=== PATIENT | male | born 1960 | race Caucasian/White ===

== ENCOUNTER → 2017-11-19 09:44 | Outpatient (CLI) | payer MEDICARE, SELFPAY ==
--- NOTE | 2017-11-19 09:44 | DT_ITS ---
This patient was seen during an EMR downtime November 12, 2017 - November 19, 2017. This patient may have a combination of paper and electronic documentation or all paper documentation. All documentation is viewable within the e-chart portion of [employer] [facility] for each patient visit.
[2017-11-19 10:54] LABS: Amphetamine Urine VISTA NEGATIVE (<1000 ng/mL); Barbiturate Urine VISTA NEGATIVE (< 200 ng/mL); Benzodiazepine Urine VISTA NEGATIVE (< 200 ng/mL); Cocaine Urine VISTA NEGATIVE (< 300 ng/mL); Ecstacy Urine VISTA NEGATIVE (< 500 ng/mL); Methadone Urine VISTA NEGATIVE (< 300 ng/mL); PCP Urine VISTA NEGATIVE (< 25 ng/mL); THC Urine VISTA NEGATIVE (< 50 ng/mL); Vista UDS pH Range 6
== END ==
PROVIDERS: Visit Provider Anesthesiology Pain Medicine
DX: F11.20 Opioid dependence, uncomplicated (principal)
CPT/HCPCS: 80307

== ENCOUNTER → 2018-07-03 10:43 | Outpatient (CLI) | payer MEDICARE, SELFPAY ==
[2018-07-03 11:35] LABS: Amphetamine Urine VISTA NEGATIVE (<1000 ng/mL); Barbiturate Urine VISTA NEGATIVE (< 200 ng/mL); Benzodiazepine Urine VISTA NEGATIVE (< 200 ng/mL); Cocaine Urine VISTA NEGATIVE (< 300 ng/mL); Ecstacy Urine VISTA NEGATIVE (< 500 ng/mL); Methadone Urine VISTA NEGATIVE (< 300 ng/mL); PCP Urine VISTA NEGATIVE (< 25 ng/mL); THC Urine VISTA NEGATIVE (< 50 ng/mL); Vista UDS pH Range 6
--- OUTSIDE RECORDS SUMMARY | 2018-09-04 08:28 | XMS RPT_ITS ---
:1960 Author Organization OHIP Care Team Providers Name Role Phone GIOVANA ARDON MD Attending Unavailable NEIL OSEI DR Admitting Unavailable NEIL OSEI DR Attending Unavailable GIOVANA ARDON MD Referring Unavailable NEIL OSEI DR Primary Care Unavailable GIOVANA ARDON MD Consulting Unavailable PROVIDER, UNKNOWN Consulting Unavailable PROVIDER, UNKNOWN Consulting Unavailable PROVIDER, UNKNOWN Consulting Unavailable NEIL OSEI DR Admitting Unavailable NEIL OSEI DR Attending Unavailable GIOVANA ARDON MD Referring Unavailable NEIL OSEI DR Primary Care Unavailable GIOVANA ARDON MD Consulting Unavailable PROVIDER, UNKNOWN Consulting Unavailable PROVIDER, UNKNOWN Consulting Unavailable PROVIDER, UNKNOWN Consulting Unavailable NEIL OSEI DR Admitting Unavailable NEIL OSEI DR Attending Unavailable NEIL OSEI DR Primary Care Unavailable GIOVANA ARDON MD Consulting Unavailable PROVIDER, UNKNOWN Consulting Unavailable PROVIDER, UNKNOWN Consulting Unavailable PROVIDER, UNKNOWN Consulting Unavailable GIOVANA ARDON MD Consulting Unavailable , HEALTH Primary Care Unavailable EMPLOYEE, HEALTH Attending Unavailable EMPLOYEE, HEALTH Admitting Unavailable PROVIDER, UNKNOWN Consulting Unavailable PROVIDER, UNKNOWN Consulting Unavailable PROVIDER, UNKNOWN Consulting Unavailable EMPLOYEE, HEALTH Admitting Unavailable , HEALTH Attending Unavailable , HEALTH Primary Care Unavailable GIOVANA ARDON MD Consulting Unavailable PROVIDER, UNKNOWN Consulting Unavailable PROVIDER, UNKNOWN Consulting Unavailable PROVIDER, UNKNOWN Consulting Unavailable NEIL OSEI DR Admitting Unavailable NEIL OSEI DR Attending Unavailable NEIL OSEI DR Primary Care Unavailable GIOVANA ARDON MD Consulting Unavailable PROVIDER, UNKNOWN Consulting Unavailable PROVIDER, UNKNOWN Consulting Unavailable PROVIDER, UNKNOWN Consulting Unavailable NEIL OSEI DR Admitting Unavailable NEIL OSEI DR Attending Unavailable GIOVANA ARDON MD Referring Unavailable NEIL OSEI DR Primary Care Unavailable GIOVANA ARDON MD Consulting Unavailable PROVIDER, UNKNOWN Consulting Unavailable PROVIDER, UNKNOWN Consulting Unavailable PROVIDER, UNKNOWN Consulting Unavailable NEIL OSEI DR Admitting Unavailable NEIL OSEI DR Attending Unavailable NEIL OSEI DR Primary Care Unavailable GIOVANA ARDON MD Consulting Unavailable PROVIDER, UNKNOWN Consulting Unavailable PROVIDER, UNKNOWN Consulting Unavailable PROVIDER, UNKNOWN Consulting Unavailable NEIL OSEI DR Admitting Unavailable NEIL OSEI DR Attending Unavailable NEIL OSEI DR Primary Care Unavailable GIOVANA ARDON MD Consulting Unavailable PROVIDER, UNKNOWN Consulting Unavailable PROVIDER, UNKNOWN Consulting Unavailable PROVIDER, UNKNOWN Consulting Unavailable Alexus Pradhan Attending Unavailable Lorne, Alexus Referring Unavailable Giovana Ardon Primary Care Unavailable BasalAlexus tilley Attending Unavailable Basaljarek, Alexus Referring Unavailable Giovana Ardon Primary Care Unavailable PROBLEMS PROBLEMS DATE TYPE CONDITION / CODE ATTENDING STATUS SOURCE 07/05/2018 Unknown F11.20 - Opioid BasaliAlexus Active Matthew dependence, Community uncomplicated / Hospital F11.20(ICD-10) Repository 01/11/2018 Admitting Anemia, unspecified GIOVANA ARDON MD [employer] Diagnosis / D64.9(ICD-10) [facility] Repository 01/11/2018 Admitting Essential (primary) GIOVANA ARDON MD [employer] Diagnosis hypertension / [facility] I10(ICD-10) Repository 01/11/2018 Admitting Other abnormal GIOVANA ARDON MD [employer] Diagnosis glucose / [facility] R73.09(ICD-10) Repository 01/11/2018 Admitting Vitamin D GIOVANA ARDON MD [employer] Diagnosis deficiency, Foundation unspecified / Repository E55.9(ICD-10) 12/20/2017 Admitting Presence of right NEIL OSEI Active Arsalan Pomerene Diagnosis artificial knee [facility] / [facility] [id number](ICD-10) Repository 12/20/2017 Principle Presence of right OSEINEIL Active Arsalan Pomerene Diagnosis artificial knee [facility] / [facility] Q86259(ICD-10) Repository 08/03/2017 Admitting Presence of left OSEINEIL Active Arsalan Pomerene Diagnosis artificial knee [facility] / [facility] G53332(ICD-10) Repository 08/03/2017 Principle Presence of left OSEINEIL Active Arsalan Pomerene Diagnosis artificial knee [facility] D30153(ICD-10) Repository 07/12/2017 Admitting Encounter for other OSEI, NEIL Active Arsalan Pomerene Diagnosis preprocedural [facility] / [facility] [id number](ICD-10) Repository 07/12/2017 Principle Encounter for other OSEI, NEIL Active Arsalan Pomerene Diagnosis preprocedural [facility] / [facility] G13441(ICD-10) Repository PROCEDURES PROCEDURES No Procedure Records FoundRESULTS RESULTS URINE DRUG SCREEN Collected: 07/03/2018 Status: F Source: [facility] ([facility]ISTA) 10:49 AM [facility] REPOSITORY Order Comment: Comments: OPIATES/MORPHINE [id number] URINE List of Drugs Taken or Suspected? UNK TYPE CODE TESTS RESULT OUT OF RANGE REFERENCE UNITS LAB L505.0075 TO BE Normal CONFIRMED Result Comment: CONFIRMATORY TESTING FOR ALL POSITIVE URINE DRUG SCREEN RESULTS WILL ONLY BE SENT OUT UPON PHYSICIAN ORDER. VISTA Urine Drug Screen methods provide only preliminary analytical test results. A more specific alternate chemical method must be used in order to obtain a confirmed analytical result. Gas chromatography/mass spectrometery (GC/MS) is the preferred confirmatory method. Clinical consideration and professional judgement should be applied to any drug of abuse test result, particularly when preliminary positive results are used. URINE TCA TESTING MUST BE ORDERED SEPARATELY. USE TEST MNEMONIC: [facility] LAB L505.5005 VISTA UDS PH 6 Normal LAB L505.5015 <1000 ng/mL AMPHETAMINES Normal NEGATIVE LAB L505.5025 < 200 ng/mL BARBITIURATES Normal NEGATIVE LAB L505.5035 < 200 ng/mL BENZODIAZIPINE Normal NEGATIVE LAB L505.5045 < 300 ng/mL COCAINE Normal NEGATIVE LAB L505.5055 < 500 ng/mL ECSTACY Normal NEGATIVE LAB L505.5065 < 300 ng/mL METHADONE Normal NEGATIVE LAB L505.5075 < 300 High ng/mL OPIATES POSITIVE LAB L505.5085 < 25 ng/mL PCP Normal NEGATIVE LAB L505.5095 < 50 ng/mL THC Normal NEGATIVE Performed By: #### L505.5000 #### [facility] [address] [place], [address] DISCHARGE SUMMARY Observed: 01/14/2018 Status: F [facility] DISCHARGE SUMMARY NAME ACCOUNT SEX AGE ADMIT DISCHARGE PT MED. RECORD# NUMBER DATE DATE TYPE SABIHA PULLIAM [id number] M 57 12/17/17 1 [id number] ROOM: [facility] DATE OF : 1960 DICTATING PHYSICIAN: Darcy Landrum PROGRESS NOTE/DISCHARGE SUMMARY ATTENDING PHYSICIAN: Dr. Neil Osei DATE OF ADMISSION: December 17, 2017 DATE OF DISCHARGE: December 18, 2017 ADMITTING DIAGNOSES: 1. Right knee primary osteoarthritis. 2. Hypertension. 3. Depression. 4. Anxiety. FINAL DIAGNOSES: 1. Right knee primary osteoarthritis, status post right total knee arthroplasty. 2. Hypertension. 3. Depression. 4. Anxiety. HOSPITAL COURSE: The patient is resting comfortably in bed during examination. No adverse events overnight. His [place] catheter has been discontinued this morning. He has not yet been able to void on his own. He still is requiring oxygen per nasal cannula. He currently denies chest pain, shortness of breath, dizziness or calf pain. He would like to be discharged to home later today. He was evaluated by his primary care provider, Dr. Manzo, this morning, who has cleared him medically. PHYSICAL EXAMINATION: Vitals: Pulse is 72, respirations 10, blood pressure 142/80, temperature 98.2, and SpO2 94% on 2 liters nasal cannula. The patient is alert and oriented x3, in no acute distress at rest, breathing easily without respiratory distress. Inspection of the right knee reveals a dressing that is clean, dry and intact. Negative Homans bilaterally without signs of DVT. Sensation is intact to light touch to the bilateral lower extremities. The patient is able to actively plantar and dorsiflex the bilateral feet against resistance. Pedal pulses are present and equal bilaterally. The patient is neurovascularly intact. DIAGNOSTIC DATA: White blood cell count is 15.6, hemoglobin 12.4, hematocrit 36, and platelet count 200,000. Page 1 of 2 SABIHA PULLIAM Discharge Summary ASSESSMENT/PLAN: 1. Status post right total knee arthroplasty, postoperative day #1. Continue Oramorph 15 mg one p.o. b.i.d. and Percocet 5/325 mg one to two p.o. every 4 hours p.r.n. pain for pain control. He will be discharged with prescriptions for these 2 medications. 2. Deep venous thrombosis prophylaxis. Bilateral TEDs, SCDs and Xarelto therapy while inpatient. With discharge, he will be given aspirin 325 mg one p.o. b.i.d. x2 weeks. 3. Begin PT/OT and weightbearing as tolerated on the right lower extremity with a walker. 4. Leukocytosis, afebrile, without acute signs of infection. The patient has a chronic history of steroid use. He also received preoperative and postoperative Decadron versus acute stress response. Anticipate resolution over the next couple of days. Continue to monitor. 5. Encouraged incentive spirometry. 6. Postoperative medical management per Dr. Manzo. 7. Continue discharge planning with case management. 8. The patient is orthopedically stable and okay for discharge to home today as long as he is having adequate pain control and moving well with physical therapy. He will follow up in the office next week for reassessment of the right knee with x-rays. Dictated By: Darcy Landrum PA-C 12/18/17 07:25 JOB #: [id number] Transcribed By: arturo 12/18/17 07:43 Electronically signed by: E-sign Darcy RED 01/14/18 14:49 Page 2 of 2 SABIHA PULLIAM Discharge Summary CBC Collected: 01/11/2018 Status: F Source: [facility] 10:12 AM [facility] TYPE CODE TESTS RESULT OUT OF REFERENCE UNITS RANGE LAB WBC(LOINC) 4.50-10.80 10 3/mcL WBC 10.20 LAB RBCCT(LOINC 4.50-6.00 10 6/mcL ) Low RBC 4.30 LAB HGB(LOINC) 13.0-17.5 G/dL Hgb 13.5 LAB HCT(LOINC) 40.0-52.0 % Hct 40.2 LAB MCV(LOINC) 81.0-100.0 fL MCV 93.6 LAB MCH(LOINC) 27.0-33.0 pg MCH 31.3 LAB MCHC(LOINC) 32.0-36.0 G/dL MCHC 33.5 LAB RDW(LOINC) 11.5-15.5 % RDW 15.1 LAB PLT(LOINC) 150-450 10 3/mcL Platelet 288 LAB MPV(LOINC) 6.4-10.5 fL MPV 9.2 Performed By: #### CBC, ADIFF, ANEU, GFR, CMP, VIDH, LIPID, A1C #### [address] [address] .AUTO DIFF Collected: 01/11/2018 Status: F Source: [facility] 10:12 AM [facility] REPOSITORY TYPE CODE TESTS RESULT OUT OF REFERENCE UNITS RANGE LAB MICHAEL(LOINC) 50.0-75.0 % Neutrophil % 61.6 LAB LYM(LOINC) 20.0-40.0 % Lymphocyte % 26.7 LAB MON(LOINC) 2.0-13.0 % Monocyte % 8.6 LAB EO(LOINC) 0.0-6.0 % Eosinophil % 1.9 LAB BAS(LOINC) 0.0-2.5 % Basophil % 1.2 LAB ABLYM(LOIN 0.90-4.32 10 3/mcL C) Lymphocyte, 2.70 Absolute LAB BALDEMAR(LOINC 0.09-1.40 10 3/mcL ) Monocyte, 0.90 Absolute LAB AEOS(LOINC 0.00-0.65 10 3/mcL ) Eosinophil, 0.20 Absolute LAB ABAS(LOINC 0.00-0.27 10 3/mcL ) Basophil, 0.10 Absolute Performed By: #### CBC, ADIFF, ANEU, GFR, CMP, VIDH, LIPID, A1C #### [address] [address] .NEUABS Collected: 01/11/2018 Status: F Source: [facility] 10:12 AM [facility] REPOSITORY TYPE CODE TESTS RESULT OUT OF REFERENCE UNITS RANGE LAB ANEU(LOINC) 2.25-8.10 10 3/mcL Neutrophil, 6.30 Absolute Performed By: #### CBC, ADIFF, ANEU, GFR, CMP, VIDH, LIPID, A1C #### [address] [address] .GFR Collected: 01/11/2018 Status: F Source: [facility] 10:12 AM [facility] REPOSITORY TYPE CODE TESTS RESULT OUT OF REFERENCE UNITS RANGE LAB GFRAA(LOINC ml/min/1.73 ) sqm GFR >60 Israeli Result Comment: GFR Population mean for , Non- Americans Ages 20-29 = 116 mL/min/1.73 sq.m. Ages 30-39 = 107 mL/min/1.73 sq.m. Ages 40-49 = 99 mL/min/1.73 sq.m. Ages 50-59 = 93 mL/min/1.73 sq.m. Ages 60-69 = 85 mL/min/1.73 sq.m. Ages 70+ = 75 mL/min/1.73 sq.m. Chronic Kidney Disease: Less than 60 mL/min/1.73 square meters End Stage Renal Disease: Less than 15 mL/min/1.73 square meters LAB GFRNO(LOINC) ml/min/1.73sqm GFR Non- 58 Result Comment: GFR Population mean for , Non- Americans Ages 20-29 = 116 mL/min/1.73 sq.m. Ages 30-39 = 107 mL/min/1.73 sq.m. Ages 40-49 = 99 mL/min/1.73 sq.m. Ages 50-59 = 93 mL/min/1.73 sq.m. Ages 60-69 = 85 mL/min/1.73 sq.m. Ages 70+ = 75 mL/min/1.73 sq.m. Chronic Kidney Disease: Less than 60 mL/min/1.73 square meters End Stage Renal Disease: Less than 15 mL/min/1.73 square meters Performed By: #### CBC, ADIFF, ANEU, GFR, CMP, VIDH, LIPID, A1C #### [address] [address] CMP Collected: 01/11/2018 Status: F Source: [facility] 10:12 AM [facility] REPOSITORY TYPE CODE TESTS RESULT OUT OF REFERENCE UNITS RANGE LAB GLU(LOINC) 70-110 mg/dL Glucose Level 92 LAB NA(LOINC) 136-145 mEq/L Sodium Level 136 LAB K(LOINC) 3.5-5.0 mEq/L Potassium Level 4.3 LAB CL(LOINC) 98-110 mEq/L Chloride 98 LAB CO2(LOINC) 22-32 mEq/L CO2 28 LAB EBAL(LOINC 4.0-15.0 mEq/L ) Electrolyte Balance 10.0 LAB BUN(LOINC) 8.0-22.0 mg/dL BUN 15.0 LAB CRE(LOINC) 0.60-1.40 mg/dL Creatinine Lvl (s) 1.29 LAB BC(LOINC) 10.0-22.0 ratio BUN/Creatinine 11.6 Ratio LAB CA(LOINC) 8.4-10.1 mg/dL Calcium Lvl 9.3 LAB PROT(LOINC 6.0-8.5 G/dL ) Total Protein 7.1 LAB ALB(LOINC) 3.2-4.8 G/dL Albumin Level 3.7 LAB GLB(LOINC) 1.5-3.8 G/dL Globulin 3.4 LAB AG(LOINC) 0.9-1.6 ratio A/G Ratio 1.1 LAB BILT(LOINC 0.2-1.2 mg/dL ) Bili Total 0.5 LAB AP(LOINC) 38-126 U/L Alk Phos High 138 LAB AST(LOINC) 8-34 U/L AST/SGOT 22 LAB ALT(LOINC) 12-55 U/L ALT/SGPT 31 Performed By: #### CBC, ADIFF, ANEU, GFR, CMP, VIDH, LIPID, A1C #### [place] [id number] [place] [address] VIDH Collected: 01/11/2018 Status: F Source: [facility] 10:12 AM [facility] TYPE CODE TESTS RESULT OUT OF RANGE REFERENCE UNITS LAB VIDH(LOINC) ng/mL Vit. D 29 25-Hydroxy Result Comment: Interpretive Values Based on Total 25(OH)D: Severe Deficiency <20 ng/mL Mild to Moderate Deficiency 20-30 ng/mL Optimum Levels 30-100 ng/mL Toxicity Possible >100 ng/mL Performed By: #### CBC, ADIFF, ANEU, GFR, CMP, VIDH, LIPID, A1C #### [address] [address] LIPID Collected: 01/11/2018 Status: F Source: [facility] 10:12 AM [facility] REPOSITORY TYPE CODE TESTS RESULT OUT OF REFERENCE UNITS RANGE LAB CHOL(LOINC 50-199 mg/dL ) Cholesterol 197 Result Comment: Cholesterol Reference Interval: Less than 200 Desirable 200-239 Borderline high risk 240 and above High risk LAB TRIG(LOINC) 3-149 mg/dL Triglycerides High 189 Result Comment: Triglyceride Reference Interval: Less than 150 Normal 150-199 Borderline high risk 200-499 High risk 500 or higher Very high risk LAB HD(LOINC) 40-59 mg/dL HDL Cholesterol 58 Result Comment: HDL Reference Interval: Less than 40 Low - high risk 60 or above Optimal/lowers risk LAB LDL(LOINC) 0-129 mg/dL LDL Cholesterol 101 Result Comment: LDL is a calculated result and requires a 12-hr fast. LDL Reference Interval: Less than 100 Optimal 100-129 Near or above optimal 130-159 Borderline high risk 160-189 High risk 190 and above Very high risk Performed By: #### CBC, ADIFF, ANEU, GFR, CMP, VIDH, LIPID, A1C #### [address] [address] A1C Collected: 01/11/2018 Status: F Source: [facility] 10:12 AM [facility] TYPE CODE TESTS RESULT OUT OF RANGE REFERENCE UNITS LAB A1C(LOINC) 4.0-6.0 % Hgb A1c 5.5 Performed By: #### CBC, ADIFF, ANEU, GFR, CMP, VIDH, LIPID, A1C #### [place] [address] DOCTOR OF PODIATRIC MEDICINE REPORT Observed: 12/20/2017 Status: F Source: [facility] 12:20 AM [facility] CONSULTATION REPORT NAME ACCOUNT SEX AGE ADMIT DISCHARGE PT MED. NUMBER DATE DATE TYPE RECORD# SABIHA PULLIAM [id number] M 57 12/17/17 1 [id number] ROOM: [facility] DATE OF : 1960 DICTATING PHYSICIAN: Klaus Manzo DATE OF CONSULTATION: December 18, 2017 REASON FOR CONSULTATION: Post medical care. PROCEDURE: Right total knee done by Dr. Neil Osei yesterday. HISTORY OF PRESENT ILLNESS: The patient is a 57-year-old white male with a history of GERD, smoking, diabetes type 2, osteoarthritis, radiculopathy - right greater than left, dysthymic disorder, obesity, renal failure, DJD of the right shoulder, inflammatory polyarthropathy, anxiety, insomnia, depression, venous stasis of the lower extremities, hypertension, chronic pain syndrome, tinea cruris, rheumatoid arthritis, and vitamin D deficiency who had a right total knee done yesterday. He had his left knee done in July. PAST MEDICAL HISTORY: As discussed. PAST SURGICAL HISTORY: Additionally, he had surgeries of appendectomy and bilateral arthroscopy. MEDICATIONS: Percocet, lorazepam 1 mg one in the morning and two at bedtime, buspirone 10 mg one tablet t.i.d., paroxetine 40 mg daily, metoprolol ER 100 mg daily, Seroquel one at bedtime, ketoconazole 2 times a day for rash, omeprazole 20 mg two times a day, Lasix 20 mg daily, enalapril 20 mg two daily, Martha-D as needed, Flexeril 10 mg daily, gabapentin 300 mg t.i.d., and morphine sulfate 15 mg twice daily. FAMILY HISTORY: Mom is alive and well and dad has heart disease, both born in 1942. Brother is alive and well. SOCIAL HISTORY: He is on disability. Every-day smoker of one pack per day. Two beers 4 times a week. REVIEW OF SYSTEMS: Unremarkable for present illness. PHYSICAL EXAMINATION: Weight is 253. BMI is 42.1. He is currently on 2 liters at 94%. Pulse is 72, respirations 20, and blood pressure 142/80. General: He is a well-developed, well-nourished, white male who appears in no acute distress. HEENT Page 1 of 2 SABIHA PULLIAM Consultation examination is unremarkable. Lungs are clear to auscultation and percussion. Heart is a regular rate and rhythm without murmurs, rubs or gallops. Abdomen is soft and nontender. Extremities are without edema. He has clot prevention devices on his legs. He has his right knee wrapped. No obvious edema. ASSESSMENT: As listed above. RECOMMENDATION: He will have prophylaxis for DVT as routinely recommended, especially in the setting of venous stasis. Continue his regular medicines. He is cleared to go home tonight. Dictated By: Klaus Manzo MD 12/18/17 06:55 JOB #: [id number] Transcribed By: arturo 12/18/17 07:01 Electronically signed by: Latosha Aguilar M.D. 12/20/17 00:19 Page 2 of 2 SABIHA PULLIAM [facility] Consultation OPERATIVE PROCEDURES Observed: 12/18/2017 Status: F Source: [facility] 7:57 AM [facility] OPERATIVE REPORT NAME ACCOUNT SEX AGE ADMIT DISCHARGE PT MED. RECORD# NUMBER DATE DATE TYPE SABIHA PULLIAM [id number] M 57 12/17/17 1 [id number] ROOM: [facility] DATE OF : 1960 DICTATING PHYSICIAN: Neil Osei DATE OF SURGERY: December 17, 2017 SURGEON: Neil Osei MD SKIVER BLOCKERS: Darcy Landrum PA-C; Shanda Miguel CSA ANESTHESIOLOGIST: Damian Fernandez CRNA ANESTHETIC: Duramorph spinal. PREOPERATIVE DIAGNOSIS: Right knee severe primary osteoarthritis. POSTOPERATIVE DIAGNOSIS: Right knee severe primary osteoarthritis. OPERATION PERFORMED: Right total knee replacement. COMPLICATIONS: ESTIMATED BLOOD LOSS: SPECIAL MEDICATIONS: Ancef, tranexamic acid. INDICATIONS FOR SURGERY: The patient is a 57-year-old male with a history of bilateral knee pain. He had a left knee replacement and has done well. He wishes to proceed with a right total knee replacement. Appropriate informed consent was obtained and signed. FINDINGS: Intraoperative findings showed severe arthritis of the right knee. He underwent a standard anterior approach to the knee followed by a cemented [employer] pre-made custom total knee replacement, cruciate-retaining design. We used pre-made tibia and femur components. The patella was a 32 x 6 mm symmetric patella. The lateral insert was 7.3 mm in depth, and the medial insert was 6.1 mm. This reproduced his anatomy nicely. He underwent standard wound closure in layers. licensed investment sales assistant, physician entry level administrative assistant, was critical throughout the entire procedure. She helped with patient positioning, holding of limbs, and holding of retractors. She helped with exposure throughout. She helped with placement and stabilization of the Page 1 of 3 HERACLIO SABIHA Clement Operative Report cutting guides. She helped with sizing and alignment of components. She helped with wound closure, bandage application, and patient transfer. Without surgical physician entry level administrative assistant, surgical time would have been increased, and surgical outcome could have been less optimal. DESCRIPTION OF OPERATION: The patient was taken to the operating room and transferred to the OR table. He was given a Duramorph spinal anesthetic. Appropriate time-out was performed. Ancef was given IV preoperatively. Tranexamic acid was given IV. A well-padded tourniquet was applied to the right upper thigh. The left lower extremity had EDDA hose and an SCD on throughout. The right lower extremity was prepped, padded and draped in the usual sterile orthopedic fashion for the procedure. We injected the anterior-superior knee with our pain-relieving solution consisting of ropivacaine, Duramorph and epinephrine. The limb was exsanguinated, and the tourniquet was applied to 350 mmHg with the help of the entry level administrative assistant. A midline incision was carried through skin and subcutaneous tissue, bringing us down on the extensor mechanism. Retractors were held by the entry level administrative assistant. Medial parapatellar arthrotomy was carried out. Straw-colored joint fluid was evacuated by the entry level administrative assistant. We raised a sleeve of tissue off the upper and medial tibia. We resected some of the infrapatellar fat pad. We resected tissue off the anterior aspect of the distal femur. Degenerative medial and lateral menisci were removed. Severe arthritis was noted throughout the knee. Bone spurs were taken off about the patella. The ACL was removed. The PCL and collateral ligaments were preserved with the help of the assistants. At this point, the femoral cutting guide system with the pre-made custom cutting blocks were utilized for our anterior, posterior and chamfer cuts with the help of the assistants holding the retractors, holding the limb and helping stabilize the cutting blocks. Once this was done with standard cuts, we used the tibial external alignment guide system with the pre-made tibial cutting guides, again helped position and held by the assistants. We used a 9 mm posterior slope, patient specific, and cut the upper tibia. Bony fragment was removed. PCL was preserved. We checked out flexion and extension gaps and found them to be normal for this system. We removed bone spurs from the posteromedial and posterolateral aspects of the femur with the help of the assistants holding the retractors. Next, a femoral trial was placed. The tibial trial was allowed to free float and placed. Ultimately, we checked the external alignment with the rods and marked its position. We then used the drill and the punch on the upper tibia with the help of the assistants stabilizing the knee and holding the retractors. Next, the patella was everted, measured and appropriate resection was carried out. This left us with a 14 mm thick patella. We trialed and decided on a 32 x 6 mm patella. The guide system was held by the entry level administrative assistant and drilled. Three drill holes were placed. The trial was placed and removed. The wound was thoroughly irrigated, cleaned and dried. Sclerotic bone on the upper tibia was freshened with a sharp pin. At this point, we controlled the bleeding at the back of the knee while the knee was distracted by the assistants. Bleeding was controlled with the Bovie. We then injected the back of the knee with our pain-relieving solution. Two full batches of bone cement were mixed and opened. The wound was thoroughly irrigated, cleaned and dried. We cemented the tibia, femur and patella. The tibia and femur were hammered into position. The patella was clamped into position. Excess bone cement was removed with the help of the assistants. Inserts were placed, Page 2 of 3 SABIHA PULLIAM Operative Report and the knee was held in full extension while the cement hardened. Once the cement was fully hardened, we re-trialed and decided on the above- stated inserts, 7.3 lateral and 6.1 medial. The knee had good flexion and good extension. The patella tracked nicely. Good leg alignment. The wound was thoroughly irrigated, cleaned and dried. The actual inserts were placed. The wound was again thoroughly irrigated. The assistants closed the wound with #1 Vicryl about the patella followed by a #2 running Stratafix, a mid-layer of 0 Vicryl, inverted 2-0 Vicryl, skin prep, Steri- Strips, 4x4s, ABD, Kerlix, and TOSHA wrap. The patient was awakened from his anesthetic and transferred back to his own bed in the recovery room in satisfactory condition. We will plan to admit him overnight. The medical service will be consulted. The patient is hoping to be discharged to home tomorrow if possible. Plan aspirin for prolonged DVT prevention and Xarelto overnight and while hospitalized. Dictated By: Neil Osei MD 12/17/17 08:32 JOB #: [id number] Transcribed By: arturo 12/17/17 09:16 Electronically signed by: E-SIGN DR. NEIL OSEI M.D. 12/18/17 07:57 Page 3 of 3 SABIHA PULLIAM Operative Report CBC Collected: 12/18/2017 Status: F Source: [facility] 5:30 AM [facility] REPOSITORY TYPE CODE TESTS RESULT OUT OF RANGE REFERENCE UNITS LAB CBC(LOINC) CBC Result Comment: CBC-COMPLETE BLOOD COUNT LAB WBC(LOINC) 4.5 - 10.8 x 10EE3/UL WBC High 15.6 LAB RBC(LOINC) 4.50 - x 10EE6/UL 6.00 RBC Low 4.03 LAB HEMOGLOBIN(LOINC 13.0 - g/dl ) 17.5 Low HEMOGLOBIN 12.4 LAB HEMATOCRIT(LOINC 40.0 - % ) 52.0 Low HEMATOCRIT 36.0 LAB MCV(LOINC) 81 - 98 fl MCV 89 LAB MCH(LOINC) 27 - 33 pg MCH 31 LAB MCHC(LOINC) 32 - 36 X10 3 MCHC 35 LAB RDW/CV(LOINC) 12.0 - % 15.6 RDW/CV 14.2 LAB PLATELET(LOINC) 150 - 450 x10EE3/UL PLATELET 200 LAB MPV(LOINC) 6.4 - 10.5 fl MPV 8.5 Result Comment: AUTOMATED DIFFERENTIAL LAB NEUT %(LOINC) 46.0 - 76.0 % NEUT % High 82.8 LAB LYMPH %(LOINC) 20.0 - 45.0 % Low LYMPH % 7.7 LAB MONOS %(LOINC) 0.0 - 10.0 % MONOS % 7.9 LAB EO %(LOINC) 0.0 - 7.0 % EO % 1.2 LAB BASO %(LOINC) 0.0 - 2.0 % BASO % 0.4 LAB Lymph #(LOINC) 0.80 - 2.80 x10EE3/U L Lymph # 1.20 LAB Neut #(LOINC) 1.50 - 7.10 x10EE3/U L Neut # High 13.00 LAB [place] #(LOINC) 0.20 - 1.00 x10EE3/U L [place] # High 1.20 LAB EO #(LOINC) 0.00 - 0.50 x10EE3/U L EO # 0.20 LAB Baso #(LOINC) 0.00 - 0.10 x10EE3/U L Baso # 0.10 LAB MANUAL DIFF(LOINC) MANUAL DIFF N/A LAB MORPHOLOGY(LOINC ) MORPHOLOGY N/A Result Comment: {CD] Performed By: #### [id number] #### [place] [id number] BMP WITH EGFR Collected: 12/18/2017 Status: F Source: [facility] 5:30 AM [facility] REPOSITORY TYPE CODE TESTS RESULT OUT OF RANGE REFERENCE UNITS LAB BMP with eGFR(LOINC) BMP with eGFR Result Comment: BASIC METABOLIC PANEL LAB SODIUM(LOINC) 136 - 145 mmol/l SODIUM Low 134 LAB POTASSIUM(LOINC) 3.5 - 5.1 mmol/L POTASSIUM 4.4 LAB CHLORIDE(LOINC) 98 - 107 mmol/L CHLORIDE 102 LAB CO2(LOINC) 21.0 - mmol/L 31.0 CO2 25.2 LAB GLUCOSE(LOINC) 74 - 106 mg/dl GLUCOSE High 112 LAB BUN(LOINC) 6 - 20 mg/dl BUN 18 LAB CREATININE(LOINC) 0.7 - 1.3 mg/dl High CREATININE 1.4 LAB CALCIUM(LOINC) 8.6 - mg/dl 10.2 CALCIUM Low 8.4 LAB ANION GAP(LOINC) 10 - 20 mmol/L ANION GAP 11 LAB AGE(LOINC) years AGE 57 LAB eGFR(LOINC) 60 - 999 ML/MINUTE eGFR Low 53 LAB eGFR(AA)(LOINC) 60 - 999 ML/MINUTE eGFR(AA) >60 Result Comment: ACCORDING TO THE NATIONAL KIDNEY DISEASE EDUCATION PROGRAM(NKDE), A NORMAL eGFR IS A VALUE GREATER THAN OR EQUAL TO 60 ML/MIN/1.73 SQ METERS. CHRONIC KIDNEY DISEASE: <60mL/MIN/1.73 SQ METERS KIDNEY FAILURE: <15mL/MIN/1.73 SQ METERS THIS TEST SHOULD ONLY BE USED FOR PATIENTS 18 YEARS OF AGE AND OLDER. Performed By: #### [id number] #### [place] [id number] FINAL SURGICAL Observed: 12/17/2017 Status: F Source: [facility] PATHOLOGY REPORT 2:47 PM [facility] REPOSITORY . Pathology Reports Accession: Collected Date/Time: Received Date/Time: Pathologist: [id number] 12/17/2017 14:47 EDT 12/18/2017 14:47 EDT DO LIVAN WORKMAN Final Surgical Pathology Report DIAGNOSIS: BONE WITH CHANGES OF DEGENERATIVE OSTEOARTHRITIS, CLINICALLY RIGHT KNEE. COMMENT: [facility]# [id number] CLINICAL INFORMATION: SEVERE PRIMARY OSTEOARTHRITIS, RIGHT KNEE SPECIMEN: A JOINT, RESEC - RIGHT KNEE BONE GROSS DESCRIPTION: Received in formalin labeled with the patient's name are multiple convex and concave fragmented portions of garcia-yellow bone and soft tissue aggregating 8 x 8 x 3 cm. The articular surfaces are focally eburnated and the cartilage is focally nodular. The underlying bone is yellow and dense to trabecular. Automatic Presser section(s) are submitted following decalcification in one cassette. Dictated by DORCAS RED ([facility]) MICROSCOPIC DESCRIPTION: Slides reviewed. Electronically Signed by Pathology Report verified by [facility] Electronically signed by LIVAN WORKMAN DO Sign out Date: 12/20/2017 13:59 Performing Lab: [facility], [address] [place] [address] Performed By: #### SPFR #### [place] [address] KNEE 2 VIEWS RT Observed: 12/17/2017 Status: F Source: [facility] 9:33 AM [place] [address] Patient: SABIHA PULLIAM Phone#: : 1960 Age: 57 Gender: M Pt. Type: In Account: [id number] Location: [facility] Ordering: NEIL OSEI Exam Date: 12/17/2017/9:08 Family Phys: GIOVANA ARDON Charge Code: [id number] Physician: [place] Order #: [id number] DLP Dose#: CORRECTION 'Left' corrected to 'right' in the conclusion. Corrected on: 12/21/2017; Dictated by: Lizz Foy MD on 12/21/2017 at 13:34 Approved by: Lizz Foy MD on 12/21/2017 at 13:34 PROCEDURE: X-RAY KNEE RT 2 VIEWS COMPARISON: None. INDICATIONS: Post op FINDINGS: BONES: A total knee prosthesis is present. The adjacent bony architecture is intact. SOFT TISSUES: Postsurgical soft tissue air is present. EFFUSION: A small joint effusion is present. OTHER: Negative. CONCLUSION: 1. Right total knee prosthesis. Dictated by: Lizz Foy MD on 12/17/2017 at 10:11 Approved by: Mariano Schmitt HISTORY AND PHYSICAL Observed: 12/03/2017 Status: F Source: [facility] EXAM 11:48 AM [facility] HISTORY & PHYSICAL NAME ACCOUNT SEX AGE ADMIT DISCHARGE PT MED. RECORD# NUMBER DATE DATE TYPE SABIHA PULILAM [id number] M 57 1 [id number] ROOM: DATE OF : 64 DICTATING PHYSICIAN: Darcy Landrum ATTENDING PHYSICIAN: Dr. Neil Osei PRIMARY CARE PROVIDER: Dr. Giovana Ardon PROCEDURE TYPE: Right total knee arthroplasty. PROCEDURE DATE: December 17, 2017. CHIEF COMPLAINT: Right knee pain. HISTORY OF PRESENT ILLNESS: This is a 57-year-old male with a chief complaint of right knee pain. It has been ongoing for the past 11 years . He has rheumatoid arthritis. He has been told that he has osteoarthritis. He has severe pain in the shoulders, hips, knees and ankles as well as feet. The knee pain is between 3 and 8 out of 10, on average 5 out of 10. He has occasional numbness and swelling. Pain is intermittent, aching, sharp, sore and worse with stairs as well as walking any distance. He gets stiff after sitting for sitting for an extended period of time. He has difficulty driving. He has had to modify daily activities. He has reduced ability to perform these, such as bathing/showering, getting dressed, doing low vision therapist. He cannot ambulate through the grocery store without difficulty. He has not fallen. He uses a walker. He has had similar symptoms on the left side. He had a total knee replacement in July 2017, and is very pleased with the surgical outcome and is doing well. He feels that it is time to replace the right knee. He has attempted rest, ice, heat, elevation, cortisone injections on multiple occasions. They are no longer providing any relief. He has had pain management with Dr. Pradhan. He has tried different medications. He currently takes oxycodone. He sees a construction person. He has done outpatient physical therapy. He has tried compression. He works on home exercises. After failing conservative measures, discussing and reviewing all treatment options with Dr. Neil Osei, the patient does wish to proceed with a right total knee arthroplasty. PAST MEDICAL HISTORY: (1) Hypertension. (2) Depression. (3) Anxiety. (4) Arthritis. PAST SURGICAL HISTORY: (1) Appendectomy. (2) Right knee arthroscopy January 2010. (3) In-office boil removed February 2011. (4) Left knee arthroscopy January 2012. (5) Left total knee arthroplasty July 2017. MEDICATIONS: (1) Martha D 24-hour Allergy and Congestion. (2) Aspirin 81 mg one Page 1 of 4 SABIHA PULLIAM History & Physical p.o. daily. (3) Buspar 10 mg one p.o. b.i.d. (4) Enalapril 20 mg one p.o. daily. (5) Flexeril daily. (6) Gabapentin 300 mg one p.o. t.i.d. (7) Lasix 1 p.o. daily. (8) Lorazepam 1 mg 1/2 tablet p.o. daily. (9) Lorazepam 1 mg 1/2 tablet p.o. daily. (10) Metoprolol succinate extended release one p.o. at bedtime. (11) Extended release morphine b.i.d. (12) Omeprazole 20 mg daily. (13) Oxycodone/acetaminophen 5/325 one to two every 4-6 hours as needed. (14) Paroxetine 40 mg one p.o. daily. (15) Plaquenil 200 mg as needed. (16) Prednisone 10 mg one p.o. daily. (17) Seroquel 1 p.o. daily. ALLERGIES: No known drug allergies. SOCIAL HISTORY: He is disabled. He is an everyday smoker. Occasional alcohol use. He denies illicit drug use. REVIEW OF SYSTEMS: Documented in the WO medical sheet. Please refer to attached document. PHYSICAL EXAMINATION GENERAL APPEARANCE: Height 65 inches. Weight 249 lbs. BMI 41.4. The patient is alert and oriented x3. No acute distress at rest. Breathing easily without respiratory distress. VITAL SIGNS: Blood pressure 152/98, pulse 72, respirations 16, temperature 97.7. HEENT: Normocephalic, atraumatic. Eyes: PERRLA, EOMI, sclerae anicteric, conjunctivae without injection. Ears: Auditory acuity grossly intact bilaterally. Nose: Bilateral pink nares without tenderness or drainage. Throat: Pharynx clear without erythema or exudate. Tongue and uvula midline. Buccal mucosa is pink and moist. NECK: Supple without adenopathy, JVD, carotid bruit, mass or tenderness. CHEST: Symmetric, nontender to palpation. AP diameter is within normal limits. HEART: Regular rate and rhythm without murmurs, rubs or gallops appreciated at this time. LUNGS: Clear to auscultation bilaterally without wheezes, rales or rhonchi. ABDOMEN: Soft, nondistended, normoactive bowel sounds x4 without tenderness. EXTREMITIES/MUSCULOSKELETAL: Able to stand and walk with a limp with pain coming from the right knee. The right knee has pain and crepitus, varus deformity, patellofemoral joint pain, joint line tenderness, swelling and edema of the lower extremities, palpable distal pulses, left knee with well- healed anterior incision from Page 2 of 4 SABIHA PULLIAM History & Physical previous surgery. Grade 5 strength of the knee, no obvious instability.Motion is 5 to 105 degrees. Hip pain and stiffness with motion. Sensation is intact to light touch. NEUROLOGIC: Cranial nerves II-XII are grossly intact. No sensory motor deficits noted. DIAGNOSTIC DATA: X-rays of right knee dated 02/22/2017 at [facility] [place], AP, tunnel, sunrise and lateral views are with [id number], contact medially, sclerosis of distal femur, upper tibia varus deformity, no obvious acute fractures. IMPRESSION: 1. Severe primary osteoarthritis of the right knee doing well. Following left total knee arthroplasty. 2. History of rheumatoid arthritis. 3. Obesity. 4. Hypertension. 5. Depression. 6. Anxiety. PLAN: Dr. Neil Osei did discuss and review with the patient all treatment options, surgical risks, nonsurgical risks and at this time the patient does wish to proceed with right total knee arthroplasty. Potential risks, benefits and complications of this procedure are reviewed in detail, including but not limited to , infection, nerve and blood vessel damage, persistent pain, numbness, tingling, paresthesias, blood clot, pulmonary embolism and requirement of possible further surgery. The patient expressed full understanding and has no further questions and does agree to proceed with the above-stated procedure and signed the appropriate surgery consent form. His plan is to be discharged to home upon leaving the hospital. Dictated By: Darcy Landrum PA-C 11/29/17 14:30 JOB #: [id number] Transcribed By: lotus 11/29/17 15:33 Electronically signed by: E-ady RED 12/03/17 09:29 Update to H&P: [ ] No changes: I have examined the patient and reviewed the H&P and there are no changes. Page 3 of 4 SABIHA PULLIAM History & Physical [ ] As previously dictated with the following changes: PHYSICIAN SIGNATURE: TIME: DATE: Page 4 of 4 SABIHA PULLIAM History & Physical DOWNTIME REPORT Observed: 11/29/2017 Status: F Source: [facility] 2:09 PM [facility] REPOSITORY [facility] Medical Records Department [address] [place] [address] Downtime Report MR#: [id number] Acct: [id number] Name: SABIHA PULLIAM Rep #: [id number] : 1960 57 From: Denys Osei PCP: Derek MARIANO,Giovana Status: REG CLI This patient was seen during an EMR downtime November 12, 2017 - November 19, 2017. This patient may have a combination of paper and electronic documentation or all paper documentation. All documentation is viewable within the e-chart portion of [employer] for each patient visit. CBC Collected: 11/29/2017 Status: F Source: [facility] 11:20 AM [facility] REPOSITORY TYPE CODE TESTS RESULT OUT OF RANGE REFERENCE UNITS LAB CBC(LOINC) CBC Result Comment: CBC-COMPLETE BLOOD COUNT LAB WBC(LOINC) 4.5 - 10.8 x 10EE3/UL WBC 9.8 LAB RBC(LOINC) 4.50 - x 10EE6/UL 6.00 RBC 4.54 LAB HEMOGLOBIN(LOINC) 13.0 - g/dl 17.5 HEMOGLOBIN 14.0 LAB HEMATOCRIT(LOINC) 40.0 - % 52.0 HEMATOCRIT 41.2 LAB MCV(LOINC) 81 - 98 fl MCV 91 LAB MCH(LOINC) 27 - 33 pg MCH 31 LAB MCHC(LOINC) 32 - 36 X10 3 MCHC 34 LAB RDW/CV(LOINC) 12.0 - % 15.6 RDW/CV 13.9 LAB PLATELET(LOINC) 150 - 450 x10EE3/UL PLATELET 229 LAB MPV(LOINC) 6.4 - 10.5 fl MPV 8.1 Result Comment: AUTOMATED DIFFERENTIAL LAB NEUT %(LOINC) 46.0 - 76.0 % NEUT % 64.9 LAB LYMPH %(LOINC) 20.0 - 45.0 % LYMPH % 27.3 LAB MONOS %(LOINC) 0.0 - 10.0 % MONOS % 6.0 LAB EO %(LOINC) 0.0 - 7.0 % EO % 1.4 LAB BASO %(LOINC) 0.0 - 2.0 % BASO % 0.4 LAB Lymph #(LOINC) 0.80 - 2.80 x10EE3/U L Lymph # 2.70 LAB Neut #(LOINC) 1.50 - 7.10 x10EE3/U L Neut # 6.40 LAB [place] #(LOINC) 0.20 - 1.00 x10EE3/U L [place] # 0.60 LAB EO #(LOINC) 0.00 - 0.50 x10EE3/U L EO # 0.10 LAB Baso #(LOINC) 0.00 - 0.10 x10EE3/U L Baso # 0.00 LAB MANUAL DIFF(LOINC) MANUAL DIFF N/A LAB MORPHOLOGY(LOINC ) MORPHOLOGY N/A Result Comment: {CD] Performed By: #### [id number] #### [facility],[address] [place] [address] BMP WITH EGFR Collected: 11/29/2017 Status: F Source: [facility] 11:20 AM [facility] REPOSITORY TYPE CODE TESTS RESULT OUT OF RANGE REFERENCE UNITS LAB BMP with eGFR(LOINC) BMP with eGFR Result Comment: BASIC METABOLIC PANEL LAB SODIUM(LOINC) 136 - 145 mmol/l SODIUM 136 LAB POTASSIUM(LOINC) 3.5 - 5.1 mmol/L POTASSIUM 4.0 LAB CHLORIDE(LOINC) 98 - 107 mmol/L CHLORIDE Low 97 LAB CO2(LOINC) 21.0 - mmol/L 31.0 CO2 30.2 LAB GLUCOSE(LOINC) 74 - 106 mg/dl GLUCOSE 91 LAB BUN(LOINC) 6 - 20 mg/dl BUN 13 LAB CREATININE(LOINC) 0.7 - 1.3 mg/dl CREATININE 1.1 LAB CALCIUM(LOINC) 8.6 - mg/dl 10.2 CALCIUM 9.2 LAB ANION GAP(LOINC) 10 - 20 mmol/L ANION GAP 13 LAB AGE(LOINC) years AGE 57 LAB eGFR(LOINC) 60 - 999 ML/MINUTE eGFR >60 LAB eGFR(AA)(LOINC) 60 - 999 ML/MINUTE eGFR(AA) >60 Result Comment: ACCORDING TO THE NATIONAL KIDNEY DISEASE EDUCATION PROGRAM(NKDE), A NORMAL eGFR IS A VALUE GREATER THAN OR EQUAL TO 60 ML/MIN/1.73 SQ METERS. CHRONIC KIDNEY DISEASE: <60mL/MIN/1.73 SQ METERS KIDNEY FAILURE: <15mL/MIN/1.73 SQ METERS THIS TEST SHOULD ONLY BE USED FOR PATIENTS 18 YEARS OF AGE AND OLDER. Performed By: #### [id number] #### [facility],[address] [facility] [address] URINE DRUG SCREEN Collected: 11/19/2017 Status: F Source: MATTHEW (DAMARITA) 9:49 AM [facility] REPOSITORY Order Comment: Comments: [id number] URINE DRUG SCREEN RUN LOWEST TEST List of Drugs Taken or Suspected? UNK TYPE CODE TESTS RESULT OUT OF RANGE REFERENCE UNITS LAB L505.0075 TO BE Normal CONFIRMED Result Comment: CONFIRMATORY TESTING FOR ALL POSITIVE URINE DRUG SCREEN RESULTS WILL ONLY BE SENT OUT UPON PHYSICIAN ORDER. VISTA Urine Drug Screen methods provide only preliminary analytical test results. A more specific alternate chemical method must be used in order to obtain a confirmed analytical result. Gas chromatography/mass spectrometery (GC/MS) is the preferred confirmatory method. Clinical consideration and professional judgement should be applied to any drug of abuse test result, particularly when preliminary positive results are used. URINE TCA TESTING MUST BE ORDERED SEPARATELY. USE TEST MNEMONIC: [facility] LAB L505.5005 VISTA UDS PH 6 Normal LAB L505.5015 <1000 ng/mL AMPHETAMINES Normal NEGATIVE LAB L505.5025 < 200 ng/mL BARBITIURATES Normal NEGATIVE LAB L505.5035 < 200 ng/mL BENZODIAZIPINE Normal NEGATIVE LAB L505.5045 < 300 ng/mL COCAINE Normal NEGATIVE LAB L505.5055 < 500 ng/mL ECSTACY Normal NEGATIVE LAB L505.5065 < 300 ng/mL METHADONE Normal NEGATIVE LAB L505.5075 < 300 High ng/mL OPIATES POSITIVE LAB L505.5085 < 25 ng/mL PCP Normal NEGATIVE LAB L505.5095 < 50 ng/mL THC Normal NEGATIVE Performed By: #### L505.5000 #### [facility] [address] [place], [place] [address]all [place], [address] MISCELLANEOUS LAB Collected: 11/19/2017 Status: F Source: [facility]W PROCEDURE 9:49 AM [facility] REPOSITORY Order Comment: Comments: [id number] URINE DRUG SCREEN RUN LOWEST TEST Test(s) Ordered: [id number] URINE DRUG SCREEN RUN LOWEST TEST TYPE CODE TESTS RESULT OUT OF RANGE REFERENCE UNITS LAB L801.1541 Normal [facility] LAB TEST Result Comment: TEST RESULT UNITS REF INTERVAL [id number] 6+Oxycodone-Bund Amphetamines, Urine Negative ng/mL Xkrtsz=2978 Amphetamine test includes Amphetamine and Methamphetamine. Barbiturate Negative ng/mL Tkmfdd=409 Benzodiazepines Negative ng/mL Ocklnx=304 Cannabinoids Negative ng/mL Cutoff=20 Cocaine (Metabolite) Negative ng/mL Soiziw=063 Opiates Positive ng/mL Fpylrp=975 Opiate test includes Codeine, Morphine, Hydromorphone, Hydrocodone. Please Note: Confirmation performed by Mass Spectrometry Codeine Negative Oayyrs=041 Morphine Positive Morphine Confirm >3000 ng/mL Covdld=104 Hydromorphone Negative Sctkrk=474 Hydrocodone Negative Xmjnkw=567 Oxycodone/Oxymorph Positive Lraafd=376 Test includes Oxycodone and Oxymorphone Oxycodone Positive Oxycodone (GC/MS) 759 ng/mL Hvvvcn=391 Oxymorphone Negative Tgfmhs=343 TESTING PERFORMED AT [facility]. ORIGINAL REPORT ON FILE IN LAB CONTAINS ADDITIONAL TEST SITE INFORMATION. Performed By: #### L801.1541 #### [facility] [address] [place] [address]. [place], [place], [address] CT LOWER EXTREMITY RT Observed: 11/06/2017 Status: F Source: [facility] 9:57 AM [place] [address] Patient: SABIHA PULLIAM Phone#: : 1960 Age: 57 Gender: M Pt. Type: Out Account: [id number] Location: 062 Ordering: NEIL OSEI Exam Date: 11/06/2017/8:56 Family Phys: GIOVANA ARDON Charge Code: 546035 Physician: [place] Order #: [id number] DLP Dose#: PROCEDURE: CT LOWER EXTREMITY RT WO CONTRAST COMPARISON: None. INDICATIONS: Conformis TECHNIQUE: Multi-planar CT images were created without intravenous contrast. All CT scans at this facility use dose modulation, iterative reconstruction, and/or weight based dosing when appropriate to reduce radiation dose to as low as reasonably achievable. IV CONTRAST: No IV contrast used,ml TOTAL DOSE: 53.8 CTDIvol(mGy) FINDINGS: BONES: Severe degenerative changes of the knee are present most marked at the medial compartment. Medial joint space is narrowed. There is sclerosis at the femoral condyle and tibial plateau. Marrow edema is present. Osteophytes are present at the anterior femoral condyle and posterior patella. Small osteophytes are present at the lateral femoral condyle anteriorly and laterally. SOFT TISSUES: Negative. No visible soft tissue swelling. EFFUSION: A small joint effusion is present. OTHER: Negative. CONCLUSION: 1. Degenerative changes of the knee are present most marked at the medial compartment. Dictated by: Lizz Foy MD on 11/06/2017 at 10:33 Approved by: Lizz Foy MD on 11/06/2017 at 10:33 DISCHARGE SUMMARY Observed: 08/13/2017 Status: F Source: [facility] 1:56 PM [facility] DISCHARGE SUMMARY NAME NUMBER SEX AGE ADMIT DISC TYPE MED.RECORD# HERACLIO Clement [id number] M 57 07/30/17 07/31/17 O/P [id number] ROOM:[facility] DATE OF :1960 PHYSICIAN NO.:[id number] PHYSICIAN NAME:E-SIGN DR. NEIL OSEI M.D. PHYSICIAN:Debra Ardon ATTENDING PHYSICIAN: Dr. Neil Osei DATE OF ADMISSION: July 30, 2017 DATE OF DISCHARGE: July 31, 2017 ADMITTING DIAGNOSES: 1. Left knee primary osteoarthritis. 2. Venous stasis of bilateral lower extremities. 3. Chronic pain syndrome. 4. Degeneration of intervertebral disc of lumbar region. 5. Obesity. 6. Insomnia. 7. Acute renal failure. 8. Gastroesophageal reflux. 9. Tinea cruris. 10. Nicotine dependence. 11. Anxiety/depression. 12. Rheumatoid arthritis. 13. Hypertension. 14. Diabetes mellitus. 15. Inflammatory polyarthropathy. 16. Vitamin D deficiency. FINAL DIAGNOSES: 1. Left knee primary osteoarthritis, status post left total knee arthroplasty. 2. Venous stasis of bilateral lower extremities. 3. Chronic pain syndrome. 4. Degeneration of intervertebral disc of lumbar region. 5. Obesity. 6. Insomnia. 7. Acute renal failure. 8. Gastroesophageal reflux. 9. Tinea cruris. 10. Nicotine dependence. 11. Anxiety/depression. 12. Rheumatoid arthritis. 13. Hypertension. 14. Diabetes mellitus. 15. Inflammatory polyarthropathy. 16. Vitamin D deficiency. HISTORY OF PRESENT ILLNESS: The patient has an ongoing history of left knee pain. After failing conservative measures, the patient opted to proceed with left total knee arthroplasty. HOSPITAL COURSE: He underwent the above-stated procedure on July 30, 2017. He did receive perioperative antibiotics. Intraoperatively was uneventful. For details, please see dictated operative report. The patient was placed in knee high EDDA hose and bilateral SCDs and remained stable in recovery. He was admitted to the third floor at [facility]. Medicine was consulted for postoperative medical management. For details of these interactions, please refer to the documents contained within the electronic medical record. He participated in physical therapy and did very well. Pain was well-managed with the use of IV and p.o. pain medications. He began receiving Xarelto therapy on postoperative day #1 for DVT prophylaxis. His stay was uneventful. He remained stable. DISCHARGE INSTRUCTIONS/PLAN: He was discharged on postoperative day #1 to home in stable condition. He will continue with extended- release morphine, Percocet, and full-strength aspirin twice daily for DVT prophylaxis. He will follow up in the office in one week for reassessment of the left knee. D: Darcy Landrum PA-C TD: 13:01 JOB #: [id number] Electronically signed by: E-ady RED 08/13/17 08:42 Transcribed by: arturo 08/07/2017 13:43 HISTORY AND PHYSICAL Observed: 08/06/2017 Status: F Source: [facility] EXAM 12:55 PM [facility] HISTORY AND PHYSICAL EXAMINATION NAME NUMBER SEX AGE ADMIT DISC TYPE MED.RECORD# HERACLIO Clement [id number] M 57 07/12/17 07/12/17 O/P [id number] ROOM: DATE OF :1960 PHYSICIAN NO.:[id number] PHYSICIAN NAME:E-SIGN DR. NEIL OSEI M.D. PHYSICIAN:Debra [place] CHIEF COMPLAINT: Scheduled for left total knee arthroplasty, July 30, 2017 HISTORY OF PRESENT ILLNESS: This is a 57-year-old male with the chief complaint of bilateral knee pain worse on the left than that of the right. It has been ongoing and getting progressively worse over the past 11 years. He also has rheumatoid arthritis. He has been told he has osteoarthritis, severe pain in the shoulders, hips, knees, and ankles and also foot pain. Knee pain is between a 3 and 8 out of 10 and on average a 5 out of 10. Occasional numbness and swelling. Pain is intermittent, aching, sharp, and sore, worse with stairs, walking and distance, sitting for an extended period of time, and driving. He has difficulties with activities such as bathing/showering, getting dressed, doing low vision therapist, and he can no longer ambulate through the grocery store without difficulty. He has tripped and stumbled. He has not specifically fallen. He previously used a cane and has had to transition to a walker full-time over the past 8 years. He has attempted conservative measures of rest, ice, heat, and elevation. He had cortisone injections on multiple occasions that helped at first and no longer provide any relief. He is in pain management with Dr. Pradhan. He has tried different medications. He currently takes hydrocodone. He sees a construction person. He has done outpatient physical therapy. He has tried compression. He works on home exercises and also has done chiropractic treatments. He has tried [id number] antiinflammatories in the past without any appreciable relief. His x-rays are with joint degeneration and deformity. He feels he has failed adequate nonoperative measures and does wish to proceed with a left total knee arthroplasty at this time. PAST MEDICAL HISTORY: Consistent with (1) Hypertension. (2) Depression. (3) Anxiety. (4) Rheumatoid arthritis. PAST SURGICAL HISTORY: (1) Appendectomy. (2) Right knee arthroscopy January of 2010, Dr. Neil Osei. (3) In office boil removal February of 2011. (4) Left knee arthroscopy January of 2012, Dr. Neil Osei. ASSISTIVE DEVICES: He admits to glasses. Denies dentures or hearing aids. MEDICATIONS: (1) Martha D take as directed. (2) Buspirone HCL 10 mg 1 p.o. t.i.d. (3) Enalapril 20 mg 1 p.o. every day. (4) Flexeril every day. (5) Gabapentin 300 mg 1 p.o. t.i.d. (6) Hydrocodone/acetaminophen 5/325 mg 1 to 2 p.o. every 6 hours p.r.n. pain. (7) Lasix 1 p.o. every day. (8) Lorazepam 1 mg 1/2 tablet p.o. daily. (9) Metoprolol Extended Release 1 p.o. at night. (10) Omeprazole 20 mg 1 p.o. every day. (11) Paroxetine 40 mg 1 p.o. every day. (12) Plaquenil 200 mg as needed. (13) Prednisone 10 mg every day by mouth. (14) Seroquel 1 tablet p.o. every day. ALLERGIES: No known drug allergies. SOCIAL HISTORY: He is disabled. Currently, smokes every day. Occasional alcohol use. Denies illicit drug use. REVIEW OF SYSTEMS: Documented in the [facility] medical history sheet. Please refer to attached document. PHYSICAL EXAMINATION GENERAL APPEARANCE: The patient is alert and oriented x3, no acute distress at rest. Breathing easily without respiratory distress. VITAL SIGNS: Height 66.5 inches. Weight 243 pounds, BMI 38.6. Blood pressure 152/80, pulse 84, respirations 20, temperature 97.3. HEENT: Head normocephalic and atraumatic. Eyes: PERRLA, EOMI, sclera anicteric, conjunctivae without injection. Ears: Auditory acuity grossly intact bilaterally. Nose: Bilateral patent nares without tenderness or drainage. Throat: Pharynx is clear without erythema, exudate. Tongue and uvula midline. Buccal mucosa pink and moist. NECK: Supple without adenopathy, JVD, carotid bruits, masses, or tenderness. CHEST: Symmetrical. Nontender to palpation. AP diameter within normal limits. HEART: Regular rate and rhythm without murmurs, rubs, or gallops appreciated at this time. LUNGS: Clear to auscultation bilaterally without wheezes, rales, or rhonchi. ABDOMEN: Soft and nondistended. Normoactive bowel sounds x4 without tenderness. NEUROLOGICAL: Cranial nerves II through XII are grossly intact without any focal sensory or motor deficits noted. EXTREMITIES/MUSCULOSKELETAL: He is able to stand and walk with a significant limp with pain coming from both knees. He has varus deformity of both knees, crepitus of both knees, patellofemoral pain, joint line tenderness. He has no obvious instability. Grade 5 strength. Motion is 5 to 105 degrees bilaterally. Palpable distal dorsalis pedis pulses. He does have reddish, blue tinge of the skin lower extremities. Tight swollen skin. No obvious signs of active infection. Normal touch to light sensation. He has hip stiffness with motion. DIAGNOSTIC DATA: X-rays of the left knee, dated February 22, 2017 [facility] [place], weightbearing, AP, tunnel, sunrise, lateral views are with sclerosis of the distal femur, upper tibia, bone on bone contact medially, bone spurring, and varus deformity without obvious fracture. IMPRESSION: 1. Bilateral knee severe primary osteoarthritis with a history of rheumatoid arthritis. 2. Obesity. 3. Hypertension. 4. Depression. 5. Anxiety. PLAN: Dr. Neil Osei did discuss and review with the patient all treatment options including surgical versus nonsurgical. At this time, the patient does wish to proceed with a left total knee arthroplasty. Potential risks, benefits, and complications of this procedure were reviewed in detail including, but not limited to , infection, nerve and blood vessel damage, persistent pain, numbness, tingling, paresthesias, blood clot, pulmonary embolism, and the requirement of possible further surgery. The patient expressed full understanding, has no further questions for the doctor, and does agree to proceed with the above stated procedure and signed the appropriate surgery consent form. D: Darcy Landrum PA-C TD: 10:37 JOB #: [id number] Electronically signed by: Ekira RED 07/30/17 14:14 Transcribed by: lonny 07/12/2017 12:15 Update to H&P: [] No changes: I have examined the patient and reviewed the H&P and there are no changes. [] As previously dictated with the following changes: PHYSICIAN SIGNATURE: TIME: DATE: E-sign Darcy RED 07/30/17 14:14 PROGRESS NOTE Observed: 08/06/2017 Status: F Source: [facility] 12:54 PM [facility] PROGRESS NOTE NAME NUMBER SEX AGE ADMIT DISC TYPE MED.RECORD# HERACLIO LANDIS L [id number] M 57 07/30/17 O/P [id number] ROOM:[facility] DATE OF :1960 PHYSICIAN NO.:[id number] PHYSICIAN NAME:E-SIGN DR. NEIL OSEI M.D. PHYSICIAN:Debra Ardon DATE OF SERVICE: July 31, 2017, 8:20 CHIEF COMPLAINT: Left knee replacement. PROCEDURES: Left total knee replacement, July 30, 2017 SUBJECTIVE: The patient is postoperative day #1 left total knee replacement. He denies chest pain or shortness of breath. He denies productive cough. He denies productive cough. He is hoping for discharge to home later today if possible. He is planning on outpatient therapy. He does live with his parents. OBJECTIVE: He has been afebrile. Vital signs are stable. Pulse ox currently is 96 on 1 liter per nasal cannula. They are trying to wean him off. Nursing 24-hour summary sheet was reviewed. Left knee bandage on clean and dry. Left knee motion is 0 to 40 degrees. Good active plantar flexion, dorsiflexion toes and ankles. No calf pain or swelling bilaterally. Negative Fide's sign. Legs neurovascularly intact. DIAGNOSTIC DATA: X-rays, PA and lateral, of the left knee from the recovery room shows a cemented total knee replacement in good position without obvious loosening, failure, or fracture. Laboratory work shows a white count of 15.6, hemoglobin 13.4, platelet count 218,000, glucose 135. ASSESSMENT: 1. Left total knee replacement. 2. Multiple medical problems including hypertensive, depression, anxiety, rheumatoid arthritis, obesity, diet-controlled diabetes. PLAN: Treatment options were discussed with the patient. Case was also discussed with Dr. Manzo who recommended incentive spirometry use, upright position, and therapy. Hopefully, he will be discharged to home later today. He will continue with home medications, continue trying to be active, using incentive spirometer, and following up in the office. The patient was given the option for Xarelto or aspirin for deep venous thrombosis prevention, and he proceeded with desiring aspirin. I recommended outpatient therapy. We will follow him up in the office as scheduled. All of his questions were answered. His home medication sheet was noted and reviewed and updated and is on the chart. D: Neil Osei MD TD: 08:24 JOB #: [id number] Electronically signed by: E-SIGN DR. NEIL OSEI M.D. 08/06/17 12:53 Transcribed by: am 07/31/2017 13:06 OPERATIVE REPORT Observed: 08/06/2017 Status: F Source: [facility] 12:54 PM [facility] REPORT OF OPERATION NAME NUMBER SEX AGE ADMIT DISC TYPE MED.RECORD# HERACLIO Clement [id number] M 57 07/30/17 I/P [id number] ROOM:302 DATE OF :1960 PHYSICIAN NO.:[id number] PHYSICIAN NAME:E-SIGN DR. NEIL OSEI M.D. PHYSICIAN:Debra Ardon DATE OF SURGERY: July 30, 2017 SURGEON: Neil Osei MD SKIVER BLOCKERS: Darcy Landrum PA-C; JULISA Kendrick ANESTHESIOLOGIST: Abel Cottrell MD ANESTHETIC: Spinal, adductor canal nerve block. PREOPERATIVE DIAGNOSIS: Left knee severe primary osteoarthritis. POSTOPERATIVE DIAGNOSIS: Left knee severe primary osteoarthritis. OPERATION PERFORMED: Left total knee replacement. COMPLICATIONS: ESTIMATED BLOOD LOSS: SPECIAL MEDICATIONS: Ancef, tranexamic acid. INDICATIONS FOR SURGERY: The patient is a 57-year-old male with a history of severe left knee pain. He failed conservative measures and wished to have a left total knee replacement. He was cleared for surgery by his medical team. FINDINGS: Intraoperative findings showed severe arthritis of the left knee. He underwent a standard small incision, anterior approach to the knee followed by a cemented ConforMIS total knee replacement using the pre-made femur and tibia. For the patella, we used a 29 x 6 mm polyethylene button. For our polyethylene inserts, we used a 6.4 mm laterally and a 6.1 mm medially. This reproduced his anatomy nicely. Clinically, the knee had good alignment and good traction of the patella. He underwent standard wound closure in layers. Surgical first and second assistants were utilized throughout the entire procedure. They helped with patient positioning, holding of limbs, and holding of retractors. They were crucial throughout the entire procedure. They helped with positioning and stabilization of the cutting blocks, positioning and sizing of the components, wound closure, bandage application, and patient transfer. Without surgical assistants, surgical time would have been significantly increased, and surgical outcome could have been less optimal. DESCRIPTION OF OPERATION: The patient was taken to the operating room and transferred to the OR table. He was given a spinal anesthetic previously. No Mayfield catheter was placed. Ancef was given IV preoperatively. Tranexamic acid was given IV. Appropriate time-outs were performed. The right lower extremity had EDDA hose and an SCD on throughout. The left upper thigh was well padded. The left lower extremity was prepped, padded and draped in the usual sterile orthopedic fashion for the procedure. We injecting some of our pain-relieving solution of epinephrine, Duramorph and ropivacaine to help with postoperative pain. The limb was exsanguinated, and the tourniquet was applied to 300 mmHg. A midline incision was made through skin and subcutaneous tissue, bringing us down to the extensor mechanism. Medial parapatellar arthrotomy was carried out. Straw-colored joint fluid was evacuated. Severe arthritis was noted throughout the knee. We released a sleeve of tissue off the upper and medial tibia. We resected some of the infrapatellar fat pad. We took tissue off the anterior aspect of the distal femur. We preserved the collateral ligaments and PCL. We resected the ACL, and the medial and lateral meniscus were taken out. Arthritis was noted throughout. At this point, the cutting guide system was used for the femur to perform the anterior, posterior and chamfer cuts at the appropriate level and depth based on the predetermined cutting guides. For the tibia, we went with a 10-degree posterior slope, and we pinned that guide in place with three pins. Retractors were held by the assistants. The cut was carried out, and the bony fragment was removed. We removed bone spurs from the posteromedial and posterolateral aspect of the femur. We placed our femoral trial. We aligned our tibial tray. We allowed it to free float and then ultimately pinned that into position with good alignment. External alignment was again checked. We then used the punch and the drill on the upper tibia. At this point, the patella was everted, measured and appropriate resection carried out, leaving us just under a 15 mm thick patella. We trialed and decided on a 29 x 6 mm patellar button. The drill guide was used. Three drill holes were placed through it. The trial was placed and removed. The wound was thoroughly irrigated, cleaned and dried. We controlled the bleeding at the back of the knee with the Bovie. We injected the back of the knee with some of our pain-relieving solution. Two full batches of bone cement were mixed and opened. Once they were fully mixed and of the appropriate texture and all of the bony structures were thoroughly irrigated, cleaned and dried, we cemented on the tibia, femur and patella. The patella was clamped in place, and the other things were hammered into position. The excess bone cement was removed. Inserts were placed, and the knee was held in full extension while the cement hardened. While the cement was hardening and the knee was in extension, we injected the remainder of our pain- relieving solution carefully throughout the knee. At this point, the cement was hardened, and the tourniquet was let down. The bleeding was controlled with the Bovie. The wound edges were again thoroughly irrigated. We were happy with our medial 6.1 mm and lateral 6.4 mm inserts. Each was sequentially placed after thoroughly irrigating and cleaning that side of the knee. At this point, the knee was flexed and extended and tracked well. No undue instability. At this point, we thoroughly irrigated, cleaned and dried it. The arthrotomy was repaired with #1 Vicryl as well as a running #2 Stratafix. The mid-layer was repaired with #1 Vicryl and then inverted 2- 0 Vicryl. We then applied skin prep, Steri-Strips, 4x4s, ABD, Kerlix, TOSHA wrap and EDDA hose. He was awakened from his anesthetic and transferred back to his own bed in the recovery room in satisfactory condition. He will be admitted to observation. D: Neil Osei MD TD: 13:43 JOB #: [id number] Electronically signed by: E-SIGN DR. NEIL OSEI M.D. 08/06/17 12:53 Transcribed by: arturo 07/31/2017 06:47 DOCTOR OF PODIATRIC MEDICINE REPORT Observed: 08/04/2017 Status: F Source: [facility] 9:00 AM [facility] CONSULTATION REPORT NAME NUMBER SEX AGE ADMIT DISC TYPE MED.RECORD# HERACLIO Clement [id number] M 57 07/30/17 07/31/17 O/P [id number] ROOM:[facility] DATE OF :1960 PHYSICIAN NO.:[id number] PHYSICIAN NAME:E-SIGN DR. NEIL OSEI M.D. PHYSICIAN:Debra Ardon DATE OF CONSULTATION: July 31, 2017 REASON FOR CONSULTATION: Postoperative medical care for surgery done yesterday. PAST MEDICAL HISTORY: Venous stasis lower legs, chronic pain syndrome, degenerative joint disease of the lumbar region, obesity, insomnia, osteoarthritis or right shoulder and both knees, renal failure, osteoarthritis, gastroesophageal reflux disease, tinea cruris, smoking, anxiety and depression, elevated glucose, rheumatoid arthritis, hypertension, diabetes mellitus type 2, inflammatory polyarthropathy, and vitamin D deficiency. MEDICATIONS: Buspirone 10 mg 3 times a day, enalapril 20 mg twice daily, Lorazepam 1 in the morning and 2 at bedtime, paroxetine 40 mg at bedtime, metoprolol 100 daily, Lasix 20 mg daily, Seroquel 100 mg at bedtime, omeprazole 20 mg 2 times a day, Martha D 1 daily in the morning, hydrocodone per pain clinic, Flexeril 10 mg daily, and gabapentin 300 mg 3 times daily. ALLERGIES: No known drug allergies. SOCIAL HISTORY: He had a flu shot in the fall. Everyday smoker, 1 pack per day. Alcohol 2 beers 4 times a week. REVIEW OF SYSTEMS: Only remarkable for glasses; otherwise, unremarkable. No chest pain, shortness of breath, belly pain, or problems with urination. PHYSICAL EXAMINATION: Vital signs: Temperature 97.3, pulse 75, respirations 18, blood pressure 149/86, 94% on 1 liter nasal cannula. Generally, he is well- developed, well-nourished, obese white male who appears in no acute distress. HEENT: Unremarkable. Lungs: Bibasilar rales, and so I encouraged him to take deep breaths and use his incentive spirometry. Heart: Regular rate and rhythm without murmurs, rubs, or gallops. Abdomen: Soft and nontender. Bowel sounds are positive without mass or organomegaly. Extremities: Without edema. He has SCDs on. Neurological, he is intact. DIAGNOSTIC DATA: Laboratories: White count a bit elevated at 15.6, hemoglobin 13.4. Electrolytes look fine. Glucose 135. ASSESSMENT: Postoperative day #1 in a patient with venous stasis, diabetes, smoker, anxiety, rheumatoid arthritis, and hypertension. RECOMMENDATION: We will treat him with prophylaxis, and he plans on going home tonight. His parents will be staying with him. D: Klaus Manzo MD CONSULTATION REPORT HERACLIO LANDIS Racquel Eubanks [facility] CONSULTATION REPORT NAME NUMBER SEX AGE ADMIT DISC TYPE MED.RECORD# HERACLIO Clement [id number] M 57 07/30/17 07/31/17 O/P [id number] ROOM:302 DATE OF :1960 PHYSICIAN NO.:[id number] PHYSICIAN NAME:E-SIGN DR. NEIL OSEI M.D. PHYSICIAN:Debra Ardon TD: 08:28 JOB #: [id number] Electronically signed by: Latosha Aguilar M.D. 08/04/17 09:00 Transcribed by: am 07/31/2017 18:58 CONSULTATION REPORT HERACLIO Clement 2 CBC Collected: 07/31/2017 Status: F Source: [facility] 5:13 AM [facility] REPOSITORY TYPE CODE TESTS RESULT OUT OF RANGE REFERENCE UNITS LAB CBC(LOINC) CBC Result Comment: CBC-COMPLETE BLOOD COUNT LAB WBC(LOINC) 4.5 - 10.8 x 10EE3/UL WBC High 15.6 LAB RBC(LOINC) 4.50 - x 10EE6/UL 6.00 RBC Low 4.30 LAB HEMOGLOBIN(LOINC 13.0 - g/dl ) 17.5 HEMOGLOBIN 13.4 LAB HEMATOCRIT(LOINC 40.0 - % ) 52.0 HEMATOCRIT 40.1 LAB MCV(LOINC) 81 - 98 fl MCV 93 LAB MCH(LOINC) 27 - 33 pg MCH 31 LAB MCHC(LOINC) 32 - 36 X10 3 MCHC 33 LAB RDW/CV(LOINC) 12.0 - % 15.6 RDW/CV 13.6 LAB PLATELET(LOINC) 150 - 450 x10EE3/UL PLATELET 218 LAB MPV(LOINC) 6.4 - 10.5 fl MPV 8.8 Result Comment: AUTOMATED DIFFERENTIAL LAB NEUT %(LOINC) 46.0 - 76.0 % NEUT % High 89.6 LAB LYMPH %(LOINC) 20.0 - 45.0 % Low LYMPH % 4.8 LAB MONOS %(LOINC) 0.0 - 10.0 % MONOS % 5.0 LAB EO %(LOINC) 0.0 - 7.0 % EO % 0.0 LAB BASO %(LOINC) 0.0 - 2.0 % BASO % 0.6 LAB Lymph #(LOINC) 0.80 - 2.80 x10EE3/U Low L Lymph # 0.70 LAB Neut #(LOINC) 1.50 - 7.10 x10EE3/U L Neut # High 13.90 LAB [place] #(LOINC) 0.20 - 1.00 x10EE3/U L [place] # 0.80 LAB EO #(LOINC) 0.00 - 0.50 x10EE3/U L EO # 0.00 LAB Baso #(LOINC) 0.00 - 0.10 x10EE3/U L Baso # 0.10 LAB MANUAL DIFF(LOINC) MANUAL DIFF N/A LAB MORPHOLOGY(LOINC ) MORPHOLOGY N/A Result Comment: {CD] Performed By: #### [id number] #### [facility],[address] [place], [place] [id number] BMP WITH EGFR Collected: 07/31/2017 Status: F Source: [facility] 5:13 AM [facility] REPOSITORY TYPE CODE TESTS RESULT OUT OF RANGE REFERENCE UNITS LAB BMP with eGFR(LOINC) BMP with eGFR Result Comment: BASIC METABOLIC PANEL LAB SODIUM(LOINC) 136 - 145 mmol/l SODIUM 138 LAB POTASSIUM(LOINC) 3.5 - 5.1 mmol/L POTASSIUM 4.3 LAB CHLORIDE(LOINC) 98 - 107 mmol/L CHLORIDE 101 LAB CO2(LOINC) 21.0 - mmol/L 31.0 CO2 29.1 LAB GLUCOSE(LOINC) 74 - 106 mg/dl GLUCOSE High 135 LAB BUN(LOINC) 6 - 20 mg/dl BUN 15 LAB CREATININE(LOINC) 0.7 - 1.3 mg/dl CREATININE 1.2 LAB CALCIUM(LOINC) 8.6 - mg/dl 10.2 CALCIUM 8.9 LAB ANION GAP(LOINC) 10 - 20 mmol/L ANION GAP 12 LAB AGE(LOINC) years AGE 57 LAB eGFR(LOINC) 60 - 999 ML/MINUTE eGFR >60 LAB eGFR(AA)(LOINC) 60 - 999 ML/MINUTE eGFR(AA) >60 Result Comment: ACCORDING TO THE NATIONAL KIDNEY DISEASE EDUCATION PROGRAM(NKDE), A NORMAL eGFR IS A VALUE GREATER THAN OR EQUAL TO 60 ML/MIN/1.73 SQ METERS. CHRONIC KIDNEY DISEASE: <60mL/MIN/1.73 SQ METERS KIDNEY FAILURE: <15mL/MIN/1.73 SQ METERS THIS TEST SHOULD ONLY BE USED FOR PATIENTS 18 YEARS OF AGE AND OLDER. Performed By: #### [id number] #### [facility],[address] [place] [id number] KNEE 2 VIEWS LT Observed: 07/30/2017 Status: F Source: [facility] 3:03 PM [facility] REPOSITORY [place] [id number] Patient: SABIHA PULLIAMErasmo Phone#: : [phone] Age: 57 Gender: M Pt. Type: In Account: [id number] Location: [id number] Ordering: NEIL OSEI Exam Date: 07/30/2017/14:49 Family Phys: GIOVANA ARDON Charge Code: 000570 Physician: [place] Order #: [id number] DLP Dose#: PROCEDURE: X-RAY KNEE LT 2 VIEWS COMPARISON: None. INDICATIONS: Post operative imaging FINDINGS: BONES: Total knee prosthesis is present. The adjacent bony architecture is intact. SOFT TISSUES: Postsurgical soft tissue air is present. EFFUSION: None visible. OTHER: Negative. CONCLUSION: 1. Total knee prosthesis is present. Dictated by: Lizz Foy MD on 07/30/2017 at 15:06 Approved by: Lizz Foy MD on 07/30/2017 at 15:06 RAPID HIV ANTIBODY Collected: 07/30/2017 Status: C Source: [facility] TEST 1:15 PM [facility] REPOSITORY TYPE CODE TESTS RESULT OUT OF REFERENCE UNITS RANGE LAB HIV AB(LOINC) [NONREACTI HIV AB NONREACTIVE LAB INTERNAL CONTROL(LOINC ) PASS INTERNAL CONTROL LAB External Ctrl done?(LOINC) YES External Ctrl done? Result Comment: Clinical data has not been collected to demonstrate the performance of the [employer] Advance Rapid HIV-1/2 Antibody test in persons less than 12 years of age. Performed By: #### [id number] #### [facility],[address] [place] [address] HEP B SURFACE AG Collected: 07/30/2017 Status: F Source: [facility] [QUEST] 1:15 PM [facility] REPOSITORY TYPE CODE TESTS RESULT OUT OF REFERENCE UNITS RANGE LAB HEP B SURFACE AG [QUEST](LOINC ) HEP B SURFACE AG [QUEST] Result Comment: _HEP B SURFACE AG_ HEPATITIS B SURFACE ANTIGEN W/RFLX TO CONFIRM. Reported: 08/03/2017 06:53 Status=F TEST RESULT FLAG RANGE UNITS HEPATITIS B SURFACE AG Nonreactive Nonreactive 08/03/17.rfl.CORRCTD .AMRR .5196-1 CONFIRMATION see below 08/03/17.rfl.JUSTUSRCTD .AMRR .7905-3 Not required according to the current package insert. Test Performed by [employer], [employer] [facility], [address] [place] [id number] Shant Willingham M.D., Ph.D., Director of Laboratories , [facility] [id number] 08/03/17.XMT.SENT REF 08/03/17.XMT.SENT REF Performed By: #### [id number] #### [facility],[address] [place] [address] HEP C VIRUS AB WITH Collected: 07/30/2017 Status: F Source: [facility] REFLEX [QUEST] 1:15 PM [facility] REPOSITORY TYPE CODE TESTS RESULT OUT OF REFERENCE UNITS RANGE LAB HEP C VIRUS AB WITH REFLEX [QUEST](LOINC HEP C ) VIRUS AB WITH REFLEX [QUEST] Result Comment: _HEP C VIRUS AB_ HEPATITIS C AB W/REFL HCV RNA, QN REAL-TIME PCR Reported: 08/03/2017 06:53 Status=F TEST RESULT FLAG RANGE UNITS HEPATITIS C ANTIBODY Nonreactive Nonreactive 08/03/17.rfl.COMPLETE.AMRR .45375-6 SIGNAL TO CUTOFF 0.00 <1.00 ratio 08/03/17.rfl.COMPLETE.AMRR .94546-6 ADDITIONAL TESTING Not indicated 08/03/17.rfl.COMPLETE.AMRR Test Performed by [facility], [employer], [address] [place] [id number] Shant Willingham M.D., Ph.D., Director of Laboratories , [facility] [id number] Performed By: #### [id number] #### [facility],[address] [place] [address] CBC Collected: 07/30/2017 Status: F Source: [facility] 10:05 [facility] REPOSITORY TYPE CODE TESTS RESULT OUT OF RANGE REFERENCE UNITS LAB CBC(LOINC) CBC Result Comment: CBC-COMPLETE BLOOD COUNT LAB WBC(LOINC) 4.5 - 10.8 x 10EE3/UL WBC High 12.3 LAB RBC(LOINC) 4.50 - x 10EE6/UL 6.00 RBC 4.63 LAB HEMOGLOBIN(LOINC 13.0 - g/dl ) 17.5 HEMOGLOBIN 14.5 LAB HEMATOCRIT(LOINC 40.0 - % ) 52.0 HEMATOCRIT 42.8 LAB MCV(LOINC) 81 - 98 fl MCV 93 LAB MCH(LOINC) 27 - 33 pg MCH 31 LAB MCHC(LOINC) 32 - 36 X10 3 MCHC 34 LAB RDW/CV(LOINC) 12.0 - % 15.6 RDW/CV 13.6 LAB PLATELET(LOINC) 150 - 450 x10EE3/UL PLATELET 232 LAB MPV(LOINC) 6.4 - 10.5 fl MPV 8.5 Result Comment: AUTOMATED DIFFERENTIAL LAB NEUT %(LOINC) 46.0 - 76.0 % NEUT % 65.9 LAB LYMPH %(LOINC) 20.0 - 45.0 % LYMPH % 23.8 LAB MONOS %(LOINC) 0.0 - 10.0 % MONOS % 8.0 LAB EO %(LOINC) 0.0 - 7.0 % EO % 0.9 LAB BASO %(LOINC) 0.0 - 2.0 % BASO % 1.4 LAB Lymph #(LOINC) 0.80 - 2.80 x10EE3/U L Lymph # High 2.90 LAB Neut #(LOINC) 1.50 - 7.10 x10EE3/U L Neut # High 8.10 LAB [place] #(LOINC) 0.20 - 1.00 x10EE3/U L [place] # 1.00 LAB EO #(LOINC) 0.00 - 0.50 x10EE3/U L EO # 0.10 LAB Baso #(LOINC) 0.00 - 0.10 x10EE3/U L Baso # High 0.20 LAB MANUAL DIFF(LOINC) MANUAL DIFF N/A LAB MORPHOLOGY(LOINC ) MORPHOLOGY N/A Result Comment: {CD] Performed By: #### [id number] #### [facility],[address] [place] [address] FINAL SURGICAL Observed: 07/30/2017 Status: F Source: [facility] PATHOLOGY REPORT 7:04 AM [facility] REPOSITORY . Pathology Reports Accession: Collected Date/Time: Received Date/Time: Pathologist: [id number] 07/30/2017 07:04 ZE 07/31/2017 07:04 MD ABEL BYRNES Final Surgical Pathology Report DIAGNOSIS: BONE, LEFT KNEE, REPLACEMENT: - OSTEOARTHRITIS WITH IRREGULAR PITTED ARTICULAR SURFACE AND EBURNATION. - NEGATIVE FOR INFLAMMATION OR NEOPLASIA. COMMENT: [facility]# [id number] CLINICAL INFORMATION: UNILATERAL PRIMARY OSTEOARTHRITIS LEFT KNEE SPECIMEN: A JOINT, RESEC - LEFT KNEE BONE GROSS DESCRIPTION: _Received in formalin labeled with the patient's name are multiple convex and concave fragmented portions of garcia-yellow bone and soft tissue aggregating 8 x 8 x 3.5 cm. The articular surfaces are focally eburnated and the cartilage is focally nodular. The underlying bone is yellow and dense to trabecular. Automatic Presser section(s) are submitted following decalcification in one cassette. Dictated by DORCAS RED ([facility]) MICROSCOPIC DESCRIPTION: Slides reviewed. Electronically Signed by Pathology Report verified by [facility] Electronically signed by ABEL DANIELLE MD Sign out Date: 08/02/2017 12:03 Performing Lab: [facility], [address] [place] [address] Performed By: #### SPFR #### [facility] [address] [place] [address] CHEST PA/LAT Observed: 07/12/2017 Status: F Source: [facility] 1:42 PM [facility] REPOSITORY [place] [address] Patient: SABIHA PULLIAM Phone#: : [phone] Age: 57 Gender: M Pt. Type: Out Account: [id number] Location: Ordering: NEIL OSEI Exam Date: 07/12/2017/11:52 Family Phys: GIOVANA EUGENED Charge Code: 585185 Physician: [place] Order #: [id number] DLP Dose#: PROCEDURE: X-RAY CHEST PA/LAT 2 VIEWS COMPARISON: None. INDICATIONS: Pre operative FINDINGS: LUNGS: Normal. No significant pulmonary parenchymal abnormalities. VASCULATURE: Normal. Unremarkable pulmonary vasculature. CARDIAC: Normal. No cardiac silhouette abnormality or cardiomegaly. MEDIASTINUM: Normal. No visible mass or adenopathy. PLEURA: Normal. No effusion or pleural thickening. BONES: Normal. No fracture or visible bony lesion. OTHER: Negative. CONCLUSION: No acute disease. Dictated by: Lizz Foy MD on 07/12/2017 at 13:43 Approved by: Lizz Foy MD on 07/12/2017 at 13:43 CBC Collected: 07/12/2017 Status: F Source: [facility] 11:42 AM [facility] REPOSITORY TYPE CODE TESTS RESULT OUT OF RANGE REFERENCE UNITS LAB CBC(LOINC) CBC Result Comment: CBC-COMPLETE BLOOD COUNT LAB WBC(LOINC) 4.5 - 10.8 x 10EE3/UL WBC High 12.4 LAB RBC(LOINC) 4.50 - x 10EE6/UL 6.00 RBC 4.56 LAB HEMOGLOBIN(LOINC 13.0 - g/dl ) 17.5 HEMOGLOBIN 14.2 LAB HEMATOCRIT(LOINC 40.0 - % ) 52.0 HEMATOCRIT 42.6 LAB MCV(LOINC) 81 - 98 fl MCV 93 LAB MCH(LOINC) 27 - 33 pg MCH 31 LAB MCHC(LOINC) 32 - 36 X10 3 MCHC 33 LAB RDW/CV(LOINC) 12.0 - % 15.6 RDW/CV 13.7 LAB PLATELET(LOINC) 150 - 450 x10EE3/UL PLATELET 232 LAB MPV(LOINC) 6.4 - 10.5 fl MPV 8.7 Result Comment: AUTOMATED DIFFERENTIAL LAB NEUT %(LOINC) 46.0 - 76.0 % NEUT % 61.1 LAB LYMPH %(LOINC) 20.0 - 45.0 % LYMPH % 28.7 LAB MONOS %(LOINC) 0.0 - 10.0 % MONOS % 7.7 LAB EO %(LOINC) 0.0 - 7.0 % EO % 1.2 LAB BASO %(LOINC) 0.0 - 2.0 % BASO % 1.3 LAB Lymph #(LOINC) 0.80 - 2.80 x10EE3/U L Lymph # High 3.60 LAB Neut #(LOINC) 1.50 - 7.10 x10EE3/U L Neut # High 7.60 LAB [place] #(LOINC) 0.20 - 1.00 x10EE3/U L [place] # 1.00 LAB EO #(LOINC) 0.00 - 0.50 x10EE3/U L EO # 0.20 LAB Baso #(LOINC) 0.00 - 0.10 x10EE3/U L Baso # High 0.20 LAB MANUAL DIFF(LOINC) MANUAL DIFF N/A LAB MORPHOLOGY(LOINC ) MORPHOLOGY N/A Result Comment: {CD] Performed By: #### [id number] #### [facility],[address] [place] [address] BMP WITH EGFR Collected: 07/12/2017 Status: F Source: [facility] 11:42 AM [facility] REPOSITORY TYPE CODE TESTS RESULT OUT OF RANGE REFERENCE UNITS LAB BMP with eGFR(LOINC) BMP with eGFR Result Comment: BASIC METABOLIC PANEL LAB SODIUM(LOINC) 136 - 145 mmol/l SODIUM 137 LAB POTASSIUM(LOINC) 3.5 - 5.1 mmol/L POTASSIUM 4.1 LAB CHLORIDE(LOINC) 98 - 107 mmol/L CHLORIDE Low 97 LAB CO2(LOINC) 21.0 - mmol/L 31.0 CO2 29.9 LAB GLUCOSE(LOINC) 74 - 106 mg/dl GLUCOSE 88 LAB BUN(LOINC) 6 - 20 mg/dl BUN 14 LAB CREATININE(LOINC) 0.7 - 1.3 mg/dl CREATININE 1.3 LAB CALCIUM(LOINC) 8.6 - mg/dl 10.2 CALCIUM 9.5 LAB ANION GAP(LOINC) 10 - 20 mmol/L ANION GAP 14 LAB AGE(LOINC) years AGE 57 LAB eGFR(LOINC) 60 - 999 ML/MINUTE eGFR Low 57 LAB eGFR(AA)(LOINC) 60 - 999 ML/MINUTE eGFR(AA) >60 Result Comment: ACCORDING TO THE NATIONAL KIDNEY DISEASE EDUCATION PROGRAM(NKDE), A NORMAL eGFR IS A VALUE GREATER THAN OR EQUAL TO 60 ML/MIN/1.73 SQ METERS. CHRONIC KIDNEY DISEASE: <60mL/MIN/1.73 SQ METERS KIDNEY FAILURE: <15mL/MIN/1.73 SQ METERS THIS TEST SHOULD ONLY BE USED FOR PATIENTS 18 YEARS OF AGE AND OLDER. Performed By: #### [id number] #### [facility],[address] [place] [address] ALLERGIES ALLERGIES DATE TYPE / CODE NAME / CODE REACTION SEVERITY SOURCE Miscellaneous No Known Moderate [facility] Agency Allergy/[id number](S Allergies (Severity [facility] NOMED CT) Modifier) Hospital (Qualifier Repository Value) ENCOUNTERS ENCOUNTERS ADMIT/DISCHARGE ACCOUNT NUMBER ADMITTING ENCOUNTER LOCATION SOURCE CLASS 07/03/[id number] [facility] ding:LAB Repository 01/11/2018/01/16/20 [id number] Ambulatory [address] WBuilding:[facility] Repository 12/20/2017/02/20/20 [id number] [facility] [address] [facility] 12/17/2017/12/19/19 [id number] OSEI, Inpatient Buildin [facility] TREJO Encounter Room: [address] [place] [address] Repository 11/29/2017/11/30/[id number] [facility] Repository 11/19/[id number] [facility] ding:LAB Repository 11/06/2017/11/07/19 [id number] OSEI, Ambulatory [facility] Agency [address] [facility] Repository 08/03/2017/09/06/19 [id number] OSEI, Ambulatory [place] [address] [address] [facility] Repository 07/30/2017 [id number] EMPLOYEE, Ambulatory [facility] Repository 07/30/2017/07/31/19 [id number] OSEI, Ambulatory Buildin [facility] Ban T[address] Room: [address] [place] [address] Repository 07/30/2017/07/30/19 [id number] EMPLOYEE, Ambulatory [address] Repository 07/12/2017/07/12/19 [id number] VALENTINE, Ambulatory [address] [facility] PAYERS PAYERS ENCOUNTER GUARANTOR PAYER SUBSCRIBER SOURCE 07/03/2018 Sabiha L Primary Sabiha L KaserDOB: Matthewrhiannon [id number] ORE Insurance:MEDICARE [id number] PART A BPolicy Number: [facility], [id number] Repository [place] [id number]: Date:2018-07-03 () 07/03/2018 [facility] Insurance:SELF PAY [facility] Number: Effective Repository Date:2018-07-03 01/11/2018 SABIHA KASERDOB: Primary SABIHA KASERDOB: [facility] [id number] Insurance:MEDICARE [id number] [facility] PART BPolicy Number: 7 [facility] Repository [facility], [id number] [place], [place] [address]Afb: Date:2018-01-11 [place] [address]Eio: [id number] () Name:[facility] ()Tel: [phone] Fzseaezqvuzmft LLCHP [phone] () [address] [phone] [address]RI: 12/20/2017 SABIHA L Primary SABIHA L KASERDOB: Arsalan Pomerene KASERDOB: Insurance:MEDICARE [id number] [facility] RECURRING REFERENCE [address] [place] [address] LABPolicy Number: LAURYN SIERRA, Repository LAURYN [place], [id number] [place] [id number] [place] Date:Plan Name: [id number]: () 12/20/2017 Secondary SABIHA L KASERDOB: Arsalan Claros Insurance:MEDICARE [id number] [facility] RECURRING REFERENCE [address] [place] [address] LABPolicy Number: LAURYN SIERRA, Repository [id number] [place] [id number] Date:Plan Name: 12/17/2017 SABIHA L Primary SABIHA L KASERDOB: Arsalan Claros KASERDOB: Insurance:MEDICARE [id number] [facility] INPATIENTPoly [address] [place] [address] Number: LAURYN SIERRA, Repository LAURYN SIER[place], [id number] [place] [id number] [place] Date:Plan Name: [id number]: () 11/29/2017 SABIHA L Primary SABIHA L KASERDOB: Arsalan ROBERTOERDOB: Insurance:MEDICARE [id number] [facility] OUTPATIENTPol[address] Number: LAURYN SIERRA, Repository LAURYN SIER[place], [id number] [place] [id number] [place] Date:Plan Name: [id number]: (HP) 11/19/2017 Sabiha L Primary Sabiha L KaserDOB: Matthew [id number] O[address] Insurance:MEDICARE [id number] Health PART A BPolicy Number: [facility], [id number] Repository [place] [id number]: Date:2017-11-19 (HP) 11/19/2017 Secondary NOT GIVENUNK [place] Insurance:SELF PAY [facility] [place] [facility] Hospital Number: Effective Repository Date:2017-11-19 11/06/2017 SABIHA L Primary SABIHA L KASERDOB: Arsalan BLISSB: Insurance:MEDICARE [id number] [facility] [address] Number: LAURYN SIERRA, Repository LAURYN SIER[place], [id number] [place] [id number] [place] Date:Plan Name: [id number]: (HP) 08/03/2017 SABIHA L Primary SABIHA L KASERDOB: Arsalan PULLIAMDOB: Insurance:MEDICARE [id number] [facility] RECURRING REFERENCE [address] [place] [address] LABPolicy Number: LAURYN SIERRA, Repository LAURYN [address], [id number] [place] [id number] [place] Date:Plan Name: [id number]: (HP) 07/30/2017 SABIHA L Primary SABIHA L KASERDOB: Arsalan ROBERTOERDOB: Insurance:MEDICARE [id number] [facility] [address] Number: LAURYN SIERRA, Repository LAURYN SIER[place], [id number] [place] [id number] [place] Date:Plan Name: [id number]: (HP) 07/12/2017 SABIHA L Primary SABIHA L KASERDOB: Arsalan PULLIAMDOB: Insurance:MEDICARE [id number] [facility] OUTPATIENT[address] Number: LAURYN SIERRA, Repository LAURYN SIERRA, [id number] [place] [id number] [place] Date:Plan Name: [id number]: (HP)
== END ==
PROVIDERS: Referring Provider Anesthesiology Pain Medicine; Visit Provider Anesthesiology Pain Medicine
DX: F11.20 Opioid dependence, uncomplicated (principal)
CPT/HCPCS: 80307

== ENCOUNTER → 2019-02-27 11:37 | Outpatient (CLI) | payer MEDICARE, SELFPAY ==
[2019-02-27 13:06] LABS: Amphetamine Urine VISTA NEGATIVE (<1000 ng/mL); Barbiturate Urine VISTA NEGATIVE (< 200 ng/mL); Benzodiazepine Urine VISTA NEGATIVE (< 200 ng/mL); Cocaine Urine VISTA NEGATIVE (< 300 ng/mL); Ecstacy Urine VISTA NEGATIVE (< 500 ng/mL); Methadone Urine VISTA NEGATIVE (< 300 ng/mL); PCP Urine VISTA NEGATIVE (< 25 ng/mL); THC Urine VISTA NEGATIVE (< 50 ng/mL); Vista UDS pH Range 7
== END ==
PROVIDERS: Referring Provider Anesthesiology Pain Medicine; Visit Provider Anesthesiology Pain Medicine
DX: F11.20 Opioid dependence, uncomplicated (principal)
CPT/HCPCS: 80307

== ENCOUNTER → 2019-12-04 10:15 | Outpatient (CLI) | payer MEDICARE, SELFPAY ==
[2019-12-04 11:05] LABS: Amphetamine Urine VISTA NEGATIVE (<1000 ng/mL); Barbiturate Urine VISTA NEGATIVE (< 200 ng/mL); Benzodiazepine Urine VISTA NEGATIVE (< 200 ng/mL); Cocaine Urine VISTA NEGATIVE (< 300 ng/mL); Ecstacy Urine VISTA NEGATIVE (< 500 ng/mL); Methadone Urine VISTA NEGATIVE (< 300 ng/mL); PCP Urine VISTA NEGATIVE (< 25 ng/mL); THC Urine VISTA NEGATIVE (< 50 ng/mL); Vista UDS pH Range 6
== END ==
PROVIDERS: Referring Provider Anesthesiology Pain Medicine; Visit Provider Anesthesiology Pain Medicine
DX: F11.20 Opioid dependence, uncomplicated (principal)
CPT/HCPCS: 80307

== ENCOUNTER → 2020-04-19 10:43 | Outpatient (CLI) | payer MEDICARE, SELFPAY ==
[2020-04-19 12:17] LABS: Amphetamine Urine VISTA NEGATIVE (<1000 ng/mL); Barbiturate Urine VISTA NEGATIVE (< 200 ng/mL); Benzodiazepine Urine VISTA NEGATIVE (< 200 ng/mL); Cocaine Urine VISTA NEGATIVE (< 300 ng/mL); Ecstacy Urine VISTA POSITIVE (< 500 ng/mL); Methadone Urine VISTA NEGATIVE (< 300 ng/mL); PCP Urine VISTA NEGATIVE (< 25 ng/mL); THC Urine VISTA NEGATIVE (< 50 ng/mL); Vista UDS pH Range 5
== END ==
PROVIDERS: Referring Provider Anesthesiology Pain Medicine; Visit Provider Anesthesiology Pain Medicine
DX: F11.20 Opioid dependence, uncomplicated (principal)
CPT/HCPCS: 80307

== ENCOUNTER → 2020-11-30 11:49 | Outpatient (CLI) | payer MEDICARE, SELFPAY ==
[2020-11-30 12:40] LABS: Amphetamine Urine VISTA NEGATIVE (<1000 ng/mL); Barbiturate Urine VISTA NEGATIVE (< 200 ng/mL); Benzodiazepine Urine VISTA NEGATIVE (< 200 ng/mL); Cocaine Urine VISTA NEGATIVE (< 300 ng/mL); Ecstacy Urine VISTA NEGATIVE (< 500 ng/mL); Methadone Urine VISTA NEGATIVE (< 300 ng/mL); PCP Urine VISTA NEGATIVE (< 25 ng/mL); THC Urine VISTA POSITIVE (< 50 ng/mL); Vista UDS pH Range 5
== END ==
PROVIDERS: PCP Family Medicine; Referring Provider Anesthesiology Pain Medicine; Visit Provider Anesthesiology Pain Medicine
DX: F11.20 Opioid dependence, uncomplicated (principal)
CPT/HCPCS: 80307

== ENCOUNTER 2021-08-09 11:12 | Outpatient (CLI) | payer MEDICARE, SELFPAY ==
[2021-08-09 11:51] LABS: Amphetamine Urine VISTA NEGATIVE (<1000 ng/mL); Barbiturate Urine VISTA NEGATIVE (< 200 ng/mL); Benzodiazepine Urine VISTA NEGATIVE (< 200 ng/mL); Cocaine Urine VISTA NEGATIVE (< 300 ng/mL); Ecstacy Urine VISTA NEGATIVE (< 500 ng/mL); Methadone Urine VISTA NEGATIVE (< 300 ng/mL); PCP Urine VISTA NEGATIVE (< 25 ng/mL); THC Urine VISTA NEGATIVE (< 50 ng/mL); Vista UDS pH Range 5
== END 2021-08-09 23:59 | disposition home or self-care (01) ==
LOC: LAB 11:15
PROVIDERS: PCP Family Medicine; Referring Provider Anesthesiology Pain Medicine; Visit Provider Anesthesiology Pain Medicine
DX: F11.20 Opioid dependence, uncomplicated (principal)
CPT/HCPCS: 80307